=== PATIENT | male | born 1960 | race Caucasian/White ===

== ENCOUNTER 2016-11-28 20:50 | Inpatient (IN) | payer OTHER ==
[~2016-11-28] VITALS: Ht 188 cm; Wt 109.2 kg
--- NOTE | ~2016-11-28 | OP ---
PATIENT NAME: FLO MATA MEDICAL RECORD: [id number] :58 LOCATION:TOBY D.CV06 ADMISSION DATE:11/29/16 SURGEON: FLO AARON MD DATE OF OPERATION: 12/03/2016 DIAGNOSIS: Severe spinal stenosis secondary to cervical spondylosis at C3-C4. PROCEDURES: 1. C3-4 anterior cervical discectomy and decompression of spinal canal. 2. Anterior cervical interbody fusion C3-4 with 11 mm ____ PEEK cage 12 x 14 mm. 3. Instrumentation with 22 mm 4-hole titanium plate and 16 mm screws. 4. Radiologic localization in the operating room. SURGEON: Flo Aaron MD. TOOL TURRET LATHE SET UP OPERATOR: None. SUMMARY: The patient was taken to the operating room and after an adequate level of general anesthetic, was prepped and draped in the usual aseptic manner. An incision was made in the skin line with a 10 blade after infiltrating with 1:400,000 of epinephrine and 0.5% lidocaine. Dissection was carried out down to the longus colli muscles. Cloward self-retaining retractors were used to maintain exposure. The C3-4 interspace was identified and the annulus and anterior longitudinal ligament were excised with a 15 blade and removed piecemeal with a pituitary. Disc material was removed from the interspace. Following this, bony osteophytes were removed with the Midas Jay drill superiorly and inferiorly and several 3 mm straight and angled curettes as well as 1 and 2 mm Cloward punch. Following this, the neural foramina were enlarged bilaterally with 1 mm Cloward punch. A ____ trial was used to determine that an 11-mm cage 12 x 14 would best fit the interspace and the C-arm image was made of this trial to be sure that this was the appropriate size. Following this, an 11-mm cage was packed with Alphatec Neocore, which was an osteoconductive material, which was mixed with bone marrow aspirate from the vertebral body of C4 harvested with the Cloud Dynamicsshidi needle. The material was then packed in the ____ cage inserted in the interspace and countersunk a millimeter. Following this, a 22-mm 4-hole plate was placed over the anterior portion of the vertebral bodies of C3 and C4 and then 16-mm screws were used to secure the plate to the vertebral bodies. Cam locks were then used to lock the screws to the plate. A C-arm image was made of the construct to be sure of the proper position of everything. This being the case, the retractors were removed and hemostasis was assured with bipolar cautery and a round Frank drain was placed in the wound and brought out through a separate stab wound. The wound was closed with 3-0 Dexon on the platysma and subcuticular stitch with 4-0 Dexon was used on the skin. Although the patient has several areas of spinal stenosis, the most severe stenosis was at C3-4 and since he was myelopathic, it was elected to go ahead and do the C3-4 level at this time and see how he does and to see what further surgery may be required in the future down lower in the cervical spine. TRANSINT:[id number] Voice Confirmation ID: [id number] DOCUMENT ID: [id number] OPERATIVE REPORT [id number] FLO MATA JAMES MD CC: [id number] DICTATION DATE: 12/03/16 1326 SNAILER: [id number]/03/[id number] ADM IN [facility] [address] [place] [address]
[~2016-11-28 20:50] MED LIST: ASCORBIC ACID500 MG PO; CURAMIN; MULTIPLE VITAMI1 TA1 PO; NIASPAN500 MG PO; OMEGA-3100 MG PO; POTASSIUM99 M1 PO; SELENIUM PO; UNITHROID25 MCG PO; VITAMIN B-1100 M1 PO; VITAMIN D31000 UNIT PO
[2016-11-28 22:17] LABS: BASOPHILS 0.1 % (0-2); EOSINOPHILS 0.1 % (0-7); HEMATOCRIT 43.8 % (42.0-54.0); HEMOGLOBIN 14.7 g/dL (13.5-17.5); IMMATURE GRANULOCYTES 0.2 % (0-5); MCH 30.7 pg (26.0-34.0); MCHC 33.6 g/dL (31.0-37.0); MCV 91.4 fL (80.0-100.0); MEAN PLATELET VOLUME 10.1 fL (7.4-10.4); MONOCYTES 3.6 % (2-11); PLATELET COUNT 206 10x3/uL (130-400); RBC 4.79 10x6/uL (4.20-6.10); RDW 12.7 % (11.5-14.5); WBC 12.1 10x3/uL (4.8-10.8)
[2016-11-28 22:33] LABS: ALBUMIN 3.8 g/dL (3.4-5.0); ALKALINE PHOSPHATASE 115 U/L (46-116); ALT (SGPT) 43 U/L (10-68); BILIRUBIN - TOTAL 0.53 mg/dL (0.2-1.3); CALC OSMOLALITY 285 mosm/kg (275-300); CALCIUM 8.7 mg/dL (8.5-10.1); CARBON DIOXIDE 28.6 mmol/L (21.0-32.0); CHLORIDE - SERUM 104 mmol/L (98-107); CREATININE - SERUM 0.9 mg/dL (0.6-1.3); PROTEIN - SERUM 7.4 g/dL (6.4-8.2); SODIUM 141 mmol/L (136-145); UREA NITROGEN 14 mg/dL (7-18); eGFR NON AFRICAN AMERICAN > 90 mL/min (90-120)
[2016-11-28 22:47] LABS: GLUCOSE 174 mg/dL (74-106)
[2016-11-28 22:51] LABS: CREATINE KINASE 356 UL (21-232)
[2016-11-28 22:53] LABS: TROPONIN-I < 0.017 ng/mL (0.000-0.060)
[2016-11-28 22:54] LABS: CKMB 6.2 U/L (0.0-3.6)
[2016-11-28 23:18] LABS: APPEARANCE CLEAR (CLEAR); BILIRUBIN NEGATIVE (NEGATIVE); COLOR YELLOW (YELLOW); GLUCOSE 100 mg/dL (NEGATIVE); KETONE SMALL mg/dL (NEGATIVE); LEUKOCYTE ESTERASE NEGATIVE (NEGATIVE); NITRITE NEGATIVE (NEGATIVE); PROTEIN NEGATIVE (NEGATIVE); SPECIFIC GRAVITY 1.015 (1.005-1.020); UROBILINOGEN NORMAL (NORMAL)
[2016-11-29 01:32] LABS: APTT 22.8 SECONDS (22.8-39.4); INR 0.99 (0.85-1.17); PROTIME 12.9 SECONDS (11.6-15.0)
[2016-11-29 01:36] LABS: UDS - AMPHET NEGATIVE QUAL (NEGATIVE); UDS - BARB NEGATIVE QUAL (NEGATIVE); UDS - BENZO NEGATIVE QUAL (NEGATIVE); UDS - COCAINE NEGATIVE QUAL (NEGATIVE); UDS - METH NEGATIVE QUAL (NEGATIVE); UDS - OPIATE NEGATIVE QUAL (NEGATIVE); UDS - PCP NEGATIVE QUAL (NEGATIVE); UDS - THC NEGATIVE QUAL (NEGATIVE)
[2016-11-29 01:51] LABS: AMYLASE - SERUM 44 U/L (25-115); C-REACTIVE PROTEIN 0.5 mg/dL (0.0-0.9); LIPASE 154 U/L (73-393); PRO BNP 16 pg/mL (0-125); THYROID STIMULATING HORMONE 1.17 uIU/mL (0.36-3.74)
[2016-11-29 04:00] VITALS: BP 139/89
--- NOTE | 2016-11-29 04:20 | NUR ---
REC'D TO ROOM 2213 FROM ER DEPT PER STRETCHER A 56 Y/O W/M PER SERVICES DR. MANCUSO WITH DX ATAXIA/LOSS OF ADL'S.AND WEAKNESS NKDA. SALINE LOCK PATENT LEFT FOREARM SITE CLEAR.ASSESSMENT PER ADMIT PACKET.SR UP X2 CALL LIGHT WITHIN REACH.
[2016-11-29 04:29] VITALS: BP 139/89; BMI 32.8
--- NOTE | 2016-11-29 07:30 | NUR ---
PATIENT IS AWAKE, ALERT AND ORIENTED X'4. RESPIRATIONS ARE EVEN AND UNLABORED ON ROOM AIR. PATIENT IS LAYING FLAT. PATIENT DENIES NEEDS. BED IN LOWEST POSITION, CALL LIGHT IN REACH. BED RAILS UP X'S 2.
--- NOTE | 2016-11-29 07:40 | NUR ---
PT ASSESSMENT COMPLETE AWAKE AND ALERT ORINETED X 3 PT NOTED TO HAVE WEAKNESS TO LEFT SIDE PT STATES HISTORY OF BELLS PALSY IN PAST HOWEVER NO HISTORY OF WEAKNESS TO ARM AND LEG. BSA X 4 QUADS. LUNGS CLEAR BILATERAL
[2016-11-29 08:44] VITALS: BP 117/78
[2016-11-29 12:24] VITALS: BP 115/77
--- NOTE | 2016-11-29 15:00 | NUR ---
DEL REAL INSERTED VIA STERILE TECHNIQUE PER ORDER DR MANCUSO TOLERATED WELL IMMEDIATE RETURN OF 850 ML CLEAR YELLOW URINE
[2016-11-29 16:31] VITALS: BP 112/73
--- NOTE | 2016-11-29 19:00 | NUR ---
PATIENT SUPINE IN BED WATCHING TV. HOB 20 DEGREES. AAOX4. RR EVEN AND UNLABORED. 0 S/S OF DISTRESS. DENIES PAIN AT THIS TIME. IV TO LEFT FA PATENT WITH NO REDNESS OR SWELLING. DEL REAL SECURED WITH STATLOCK AND DRAINING TO GRAVITY. SRX2. BED LOW. CALL LIGHT WITHIN REACH.
[2016-11-29 20:00] VITALS: BP 113/72
[2016-11-30] VITALS: BP 105/59
[2016-11-30 03:00] LABS: BASOPHILS 0.2 % (0-2); HEMATOCRIT 42.8 % (42.0-54.0); HEMOGLOBIN 14.2 g/dL (13.5-17.5); IMMATURE GRANULOCYTES 0.2 % (0-5); MCH 30.6 pg (26.0-34.0); MCHC 33.2 g/dL (31.0-37.0); MCV 92.2 fL (80.0-100.0); MEAN PLATELET VOLUME 10.3 fL (7.4-10.4); MONOCYTES 10.8 % (2-11); NEUTROPHILS 63.8 % (40-80); PLATELET COUNT 205 10x3/uL (130-400); RBC 4.64 10x6/uL (4.20-6.10); RDW 13.3 % (11.5-14.5)
[2016-11-30 03:06] LABS: WBC 8.2 10x3/uL (4.8-10.8)
[2016-11-30 03:23] LABS: ALBUMIN 3.5 g/dL (3.4-5.0); ALKALINE PHOSPHATASE 105 U/L (46-116); ALT (SGPT) 38 U/L (10-68); BILIRUBIN - TOTAL 0.45 mg/dL (0.2-1.3); CALC OSMOLALITY 281 mosm/kg (275-300); CALCIUM 8.7 mg/dL (8.5-10.1); CARBON DIOXIDE 29.2 mmol/L (21.0-32.0); CHLORIDE - SERUM 106 mmol/L (98-107); CREATININE - SERUM 0.8 mg/dL (0.6-1.3); MAGNESIUM - SERUM 2.2 mg/dL (1.8-2.4); PHOSPHOROUS 3.3 mg/dL (2.5-4.9); POTASSIUM - SERUM 3.6 mmol/L (3.5-5.1); PROTEIN - SERUM 6.9 g/dL (6.4-8.2); SODIUM 141 mmol/L (136-145); UREA NITROGEN 15 mg/dL (7-18); eGFR NON AFRICAN AMERICAN > 90 mL/min (90-120)
[2016-11-30 03:25] LABS: GLUCOSE 101 mg/dL (74-106)
[2016-11-30 04:00] VITALS: BP 102/63
--- NOTE | 2016-11-30 04:00 | NUR ---
PATIENT SLEEPING WITH NO DISTRESS NOTED. CALL LIGHT WITHIN REACH.
--- NOTE | 2016-11-30 08:15 | NUR ---
PATIENT IS AWAKE AND ALERT, HE DID DISCUSS THAT HE HAS NOT BEEN ABLE TO WALK SINCE HE GOT HERE, HE GETS FRUSTRATED EASILY BECAUSE HE CAN NOT DO WHAT HE NORMALLY DOES. NO NEEDS.
[2016-11-30 09:04] VITALS: BP 115/69
--- NOTE | 2016-11-30 11:04 | NUR ---
PATIENT IS AWAKE AND ALERT, HE IS COMPLIANT WITH MEDS AND HE HAS NO NEEDS AT THIS TIME.
[2016-11-30 11:40] VITALS: BP 105/65
--- NOTE | 2016-11-30 14:00 | NUR ---
PATIENT WENT DOWN FOR A SPINAL TAP, BUT RADIOLOGY CALLED TO SEE IF HE HAD ASA IN THE PAST THREE DAYS. EXPLAINED TO HER THAT "YES, HE HAD AN ASA YESTERDAY, BUT IT HAS BEEN ON HOLD".
--- NOTE | 2016-11-30 14:15 | NUR ---
PATIENT IS BACK FROM RADIOLOGY, HE WAS NOT ABLE TO HAVE PROCEDURE D/T HAVING HAD ASAS YESTERDAY.
--- NOTE | 2016-11-30 15:08 | NUR ---
Patient had aspirin on 11-29-16. Radiologist to do LP on 12-03-16. Please hold all blood thinners.
--- NOTE | 2016-11-30 15:22 | NUR ---
Patient Name: FLO MATA Admission Status: ER Accout number: [id number] Admission Date: 11-29-2016 : 1960 Admission Diagnosis:ATAXIA, UNSPECIFIED Attending: FILIBERTO Current LOS: 1 Anticipated DC Date: 12-04-2016 Planned Disposition: Home Primary Insurance: [employer] Discharge Planning Comments: CM SPOKE WITH PATIENT REGARDING DISCHARGE NEEDS AND PLANS. PATIENT STATED HE LIVES ALONE AND HAS NO STEPS OR STAIRS AT HIS HOME. PATIENTS FRIEND (NATALIA) WILL DRIVE HIM HOME AT DISCHARGE. PATIENT STATED HE IS INDEPENDENT WITH HIS CARE AND HAS A WALKING STICK AT HOME. PATIENTS PCP IS DR. MANCUSO AND PHARMACY IS [facility] [address]. PATIENT WANTED TO WAIT AND SEE IF HOME HEALTH IS NEEDED. CM WILL CONTINUE TO FOLLOW PATIENT WITH D/C NEEDS AND PLANS. PCP DR. JAMEE [facility] [address]- [phone] NATALIA De La Torre (FRIEND) [phone] Wool Shearer: Jaimee Pierce Is the patient Alert and Oriented? Yes 0 * How many steps to enter\exit or inside your home? 0 0 * PCP DR. MANCUSO 0 * Pharmacy [facility] [address] 0 * Preadmission Environment Home Alone 0 * ADLs Independent 0 * Equipment None 0 * Other Equipment WALKING STICK 0 * List name and contact numbers for known caregivers / representatives who currently or will assist patient after discharge: NATALIA VARGAS (FRIEND) [phone] WILL BODY COVERER PATIENT 0 Grand Total: 0
[2016-11-30 15:52] VITALS: BP 111/73
--- NOTE | 2016-11-30 16:30 | NUR ---
PATIENT IS CALM AND PLEASANT, NO NEEDS AT THIS TIME.
[2016-11-30 17:38] LABS: APTT 24.6 SECONDS (22.8-39.4); INR 0.95 (0.85-1.17); PROTIME 12.6 SECONDS (11.6-15.0)
--- NOTE | 2016-11-30 18:45 | NUR ---
PATIENT IS CALM, HE DOES KEEP TURNING OFF HIS IV FLUIDS.
[2016-11-30 20:00] VITALS: BP 127/74
[2016-12-01] VITALS: BP 116/77
--- NOTE | 2016-12-01 00:47 | NUR ---
ASSESSED AT THE BEGINNING OF THE SHIFT. PT IS ALERT AND ORIENTED, ABLE TO VERBALIZE NEEDS. HE IS UNABLE TO GET UP FROM THE BED DUE TO WEAKNESS. HE HAS A DEL REAL CATH TO HELP WITH VOIDING AND WE ARE MAKING SURE THAT HE IS TURNING FOR COMFORT AND SKIN CARE. HIS IV SITE WAS LOOKING PUFFY SO IT WAS DC'D AND MOVED TO HIS LEFT HAND. HE IS JERKY AND IT WAS HARD TO PLACE AN IV DUE TO THIS. HE IS PLEASANT AND COOPERATIVE. THE BED IS LOW, RAILS UP X'S 2 WITH THE CALL LIGHT AT HAND.
[2016-12-01 04:00] VITALS: BP 107/62
[2016-12-01 06:11] LABS: BASOPHILS 0.3 % (0-2); EOSINOPHILS 1.6 % (0-7); HEMATOCRIT 44.1 % (42.0-54.0); HEMOGLOBIN 14.7 g/dL (13.5-17.5); IMMATURE GRANULOCYTES 0.1 % (0-5); LYMPHOCYTES 25.5 % (15-50); MCH 30.6 pg (26.0-34.0); MCHC 33.3 g/dL (31.0-37.0); MCV 91.7 fL (80.0-100.0); MEAN PLATELET VOLUME 11.2 fL (7.4-10.4); NEUTROPHILS 60.5 % (40-80); PLATELET COUNT 175 10x3/uL (130-400); RBC 4.81 10x6/uL (4.20-6.10); RDW 13.2 % (11.5-14.5); WBC 7.1 10x3/uL (4.8-10.8)
[2016-12-01 06:30] LABS: CALC OSMOLALITY 285 mosm/kg (275-300); CALCIUM 8.7 mg/dL (8.5-10.1); CARBON DIOXIDE 25.5 mmol/L (21.0-32.0); CHLORIDE - SERUM 108 mmol/L (98-107); CREATININE - SERUM 0.6 mg/dL (0.6-1.3); GLUCOSE 127 mg/dL (74-106); SODIUM 142 mmol/L (136-145); UREA NITROGEN 14 mg/dL (7-18); eGFR NON AFRICAN AMERICAN > 90 mL/min (90-120)
[2016-12-01 06:31] LABS: POTASSIUM - SERUM 4.6 mmol/L (3.5-5.1)
--- NOTE | 2016-12-01 07:20 | NUR ---
PATIENT RECEIVED IN LOW GOODMAN POSITION RESTING WITH EYES CLOSED. RESPIRATIONS EVEN AND UNLABORED. SIDE RAILS UP X2. BED IN LOW POSITION. CALL LIGHT IN REACH.
[2016-12-01 07:27] LABS: RAPID PLASMA REAGIN Non Reactive (Non Reactive)
[2016-12-01 07:32] VITALS: BP 118/72
--- NOTE | 2016-12-01 09:00 | NUR ---
PATIENT ALERT IN BED. NO SIGNS OF DISTRESS NOTED. TOLERATED BREAKFAST WITHOUT DIFFICULTY. SCHEDULED MEDICATION ADMINISTERED. SIDE RAILS UP X2. BED IN LOW POSITION. CALL LIGHT IN REACH.
--- NOTE | 2016-12-01 09:15 | NUR ---
SCDS ON BILATERALLY. USE EXPLAINED. STATES UNDERSTANDING. SIDE RAILS UP X2. BED IN LOW POSITION. CALL LIGHT IN REACH.
--- NOTE | 2016-12-01 11:10 | NUR ---
ALERT IN HIGH GOODMAN POSITION. NO SIGNS OF DISTRESS NOTED. SIDE RAILS UP X2. BED IN LOW POSITION. CALL LIGHT IN REACH.
[2016-12-01 11:20] VITALS: BP 134/72
--- NOTE | 2016-12-01 13:55 | NUR ---
PATIENT IN LOW GOODMAN POSITION RESTING WITH EYES CLOSED. RESPIRATIONS EVEN AND UNLABORED. SIDE RAILS UP X2. BED IN LOW POSITION. CALL LIGHT IN REACH.
[2016-12-01 15:26] VITALS: BP 133/70
--- NOTE | 2016-12-01 16:30 | NUR ---
PATIENT AWAKE AND ALERT IN BED WATCHING TV. RESPIRATIONS EVEN AND UNLABORED. SIDE RAILS UP X2. BED IN LOW POSITION. CALL LIGHT IN REACH. DENIES NEEDS.
--- NOTE | 2016-12-01 18:00 | NUR ---
ALERT IN BED WATCHING TV. NO SIGNS OF DISTRESS NOTED. DENIES NEEDS. SIDE RAILS UP X2. BED IN LOW POSITION. CALL LIGHT IN REACH.
[2016-12-01 20:00] VITALS: BP 130/85
[2016-12-02] VITALS: BP 128/87
[2016-12-02 04:00] VITALS: BP 122/84
--- NOTE | 2016-12-02 05:52 | NUR ---
ASSESSED AT THE BEGINNING OF THE SHIFT. PT IS ALERT AND ORIENTED, ABLE TO VERBALIZE NEEDS. HE IS ABLE TO TURN AND REPOSITION FOR COMFORT BUT CANNOT GET UP TO THE BATHROOM DUE TO POOR BALANCE. HE HAS A DEL REAL CATH TO VOID. MOST OF THE NIGHT HE HAS SLEPT EXCEPT WHEN HIS IV BEEPS AND WAKES HIM UP. HE IS HAVING A HARD TIME GETTING BACK TO SLEEP DUE TO THE FACT THAT HIS MIND WONT CUT OFF. HE IS WORRIED ABOUT HIS UP COMING SURGERY ON ACF 2-4. THE BED IS LOW, RAILS UP X'S 2 WITH THE CALL LIGHT AT HAND.
--- NOTE | 2016-12-02 08:30 | NUR ---
SCHEDULED MEDICATIONS ADMINISTERED AT THIS TIME WITHOUT DIFFICULTY. ASSESSMENT PERFORMED PER FLOWSHEET. DEL REAL PATENT AND DRAINING TO GRAVITY. PT DENIES PAIN AT THIS TIME. MER MAT ALARM ON AND IN USE FOR FALL PRECAUTIONS. PT REFUSES SCD'S AT THIS TIME. CALL LIGHT IN REACH, SRX2 WITH BED IN LOWEST POSITION AND WHEELS LOCKED. WILL CONTINUE WITH PLAN OF CARE.
[2016-12-02 09:06] VITALS: BP 154/87
[2016-12-02 09:39] LABS: BASOPHILS 0 % (0-2); EOSINOPHILS 0 % (0-7); HEMATOCRIT 44.9 % (42.0-54.0); HEMOGLOBIN 15.1 g/dL (13.5-17.5); IMMATURE GRANULOCYTES 0.3 % (0-5); MCH 30.7 pg (26.0-34.0); MCHC 33.6 g/dL (31.0-37.0); MCV 91.3 fL (80.0-100.0); MEAN PLATELET VOLUME 10.2 fL (7.4-10.4); MONOCYTES 3.8 % (2-11); NEUTROPHILS 87.9 % (40-80); PLATELET COUNT 235 10x3/uL (130-400); RBC 4.92 10x6/uL (4.20-6.10); WBC 12.2 10x3/uL (4.8-10.8)
[2016-12-02 09:45] LABS: CALC OSMOLALITY 286 mosm/kg (275-300); CARBON DIOXIDE 26.7 mmol/L (21.0-32.0); CHLORIDE - SERUM 105 mmol/L (98-107); GLUCOSE 194 mg/dL (74-106); POTASSIUM - SERUM 3.8 mmol/L (3.5-5.1); SODIUM 142 mmol/L (136-145); UREA NITROGEN 9 mg/dL (7-18); eGFR NON AFRICAN AMERICAN 82 mL/min (90-120)
--- NOTE | 2016-12-02 10:25 | NUR ---
URINE SAMPLE OBTAINED AT THIS TIME FOR URINE CULTURE PER ORDER. OBTAINED FROM SAMPLE PORT ON DEL REAL CATHETER. STAT LOCKED REPLACED AND DEL REAL CARE PROVIDED. FATHER AT BEDSIDE. DENIES NEEDS AT PRESENT TIME. CALL LIGHT IN REACH, WILL CONTINUE WITH PLAN OF CARE.
[2016-12-02 10:46] LABS: APPEARANCE HAZY (CLEAR); BILIRUBIN NEGATIVE (NEGATIVE); COLOR YELLOW (YELLOW); GLUCOSE 100 mg/dL (NEGATIVE); KETONE NEGATIVE (NEGATIVE); LEUKOCYTE ESTERASE TRACE (NEGATIVE); NITRITE NEGATIVE (NEGATIVE); PROTEIN NEGATIVE (NEGATIVE); SPECIFIC GRAVITY 1.015 (1.005-1.020); UROBILINOGEN NORMAL (NORMAL)
[2016-12-02 10:47] LABS: BACTERIA MODERATE /hpf (NONE SEEN); EPITHELIAL CELLS 0-5 /hpf (0-5); MUCUS <1+ /lpf (NONE SEEN)
--- NOTE | 2016-12-02 10:55 | NUR ---
SCHEDULED MEDICATIONS ADMINISTERED AT THIS TIME. IV TO LEFT WRIST PATENT WITH BRISK BLOOD RETURN PRESENT. FATHER REMAINS AT BEDSIDE. CALL LIGHT IN REACH, WILL CONTINUE WITH PLAN OF CARE.
[2016-12-02 11:48] VITALS: BP 122/88
--- NOTE | 2016-12-02 12:35 | NUR ---
NEW ORDER OBTAINED FOR URINE CULTURE AND ROCEPHIN PER DR SAN DUE TO RESULTS OF URINE ANALYSIS. EXPLAINED THESE NEW ORDERS TO PT AND HE VERBALIZED UNDERSTANDING. EATING LUNCH WITHOUT DIFFICULTY. FATHER REMAINS AT BEDSIDE. CALL LIGHT IN REACH, WILL CONTINUE WITH PLAN OF CARE.
[2016-12-02 16:14] VITALS: BP 136/84
[2016-12-02 20:00] VITALS: BP 139/77
--- NOTE | 2016-12-02 21:05 | NUR ---
AAO TIMES 4 SITTING UP IN BED @ 45 DEGREES. ASSESSMENT PER FLOWSHEET. REPORTS PAIN 0 AT THIS TIME. C/O CONTINUED WEAKNESS BUE, ESPECIALLY IN FINGERTIPS. REPORTS EPISODES OF ARMS MOVING INVOLUNTARILY BUT STATES THIS IS BETTER SINCE HE HAS BEEN IN THE HOSPITAL ON [facility]. PATIENT ASKS QUESTIONS REGARDING SCHEDULED ACF TOMORROW. QUESTIONS ANSWERED. DEL REAL CATHETER TO GRAVITY WITH YELLOW DRAINAGE NOTED. DENIES NEEDS, BED LOW, CL IN REACH, ALL FALL PRECAUTIONS CARRIED OUT. WILL CPOC.
[2016-12-03] VITALS (14 sets, daily range): BP systolic 124–147; BP diastolic 68–91; BMI 35.7
--- NOTE | 2016-12-03 00:51 | NUR ---
RESTING QUIETLY WITH EYES CLOSED RESP DEEP EVEN UNLABORED. BED LOW, CL IN REACH. ALL FALL PRECAUTIONS IN PLACE.
[2016-12-03 04:42] LABS: BASOPHILS 0.1 % (0-2); EOSINOPHILS 0 % (0-7); HEMATOCRIT 42.2 % (42.0-54.0); IMMATURE GRANULOCYTES 0.5 % (0-5); LYMPHOCYTES 10.3 % (15-50); MCH 30.4 pg (26.0-34.0); MCHC 33.2 g/dL (31.0-37.0); MCV 91.7 fL (80.0-100.0); MEAN PLATELET VOLUME 10.2 fL (7.4-10.4); MONOCYTES 6.3 % (2-11); NEUTROPHILS 82.8 % (40-80); PLATELET COUNT 226 10x3/uL (130-400); RDW 13.1 % (11.5-14.5); WBC 11.8 10x3/uL (4.8-10.8)
[2016-12-03 04:52] LABS: INR 0.96 (0.85-1.17); PROTIME 12.6 SECONDS (11.6-15.0)
[2016-12-03 05:02] LABS: CALCIUM 8.6 mg/dL (8.5-10.1); CARBON DIOXIDE 29.5 mmol/L (21.0-32.0); CHLORIDE - SERUM 107 mmol/L (98-107); CREATININE - SERUM 0.8 mg/dL (0.6-1.3); POTASSIUM - SERUM 4.1 mmol/L (3.5-5.1); SODIUM 144 mmol/L (136-145); eGFR NON AFRICAN AMERICAN > 90 mL/min (90-120)
[2016-12-03 05:04] LABS: CALC OSMOLALITY 289 mosm/kg (275-300); GLUCOSE 137 mg/dL (74-106); UREA NITROGEN 15 mg/dL (7-18)
--- NOTE | 2016-12-03 07:46 | NUR ---
PT HAS BEEN SCHEDULED FOR AN ACF THIS AM. PLEASE CANCEL ORDERS FOR LUMBAR PUNCTURE. VERIFIED W [place] BARRIOS.
--- NOTE | 2016-12-03 08:28 | NUR ---
SPOKE WITH MYLES TOBIAS, SHE STATED TO CHANGE THE OBTAIN CONSENT TO ACF OF 2-3, 3-4.
--- NOTE | 2016-12-03 09:39 | NUR ---
PRE-OP MEDICATIONS GIVEN TO PATIENT. PATIENT REMOVED GLASSES. PATIENT HAS DENTURES IN, BROUGHT PATIENT A DENTURE CUP. HE STATED HE WILL TAKE THEM OUT WHEN THEY COME TO GET HIM TO TAKE HIM TO PRE-OP. LEFT CUP ON THE BEDSIDE TABLE IN PATIENT'S REACH. PATIENT'S FATHER IS IN RECLINER.
--- NOTE | 2016-12-03 13:55 | NUR ---
PT CAROLINAGGLES BILAT TOES PER REQUEST
--- NOTE | 2016-12-03 14:45 | NUR ---
PT TO CVICU AT THIS TIME. PT IS STILL LETHARGIC FROM SEDATION. PT ANSWERS MOST QUESTIONS APPROPRIATLEY, AND FOLLOWS COMMANDS. PT ATTACHED TO MONITOR, O2 LOW. NC APPLIED AT 2L. PT HAS INSICION TO LEFT NECK. AREA IS CLEAN DRY AND DRSG INTACT. LORENA DRAIN TO LET NECK, COMPRESSED WITH BLOODY DRAINAGE. DEL REAL/SCDS IN PLACE. VSS. WILL MONITOR.
--- NOTE | 2016-12-03 17:00 | NUR ---
PT SITTING UP IN BED WATING ICE CHIPS AT THIS TIME. INCISION SITE APPEARS APPROPRIATE, DRSG INTACT. VSS
--- NOTE | 2016-12-03 19:30 | NUR ---
REPORT REC'D AND CARE ASSUMED, REC'D PT AWAKE, ALERT, ORIENTED X 3, ON ROOM AIR, LEFT HAND PIV D51/2NS @ 50CC/HR, LEFT FA PIV SALINE LOCKED BOTH IV SITES WITHOUT REDNESS OR EDEMA, RIGHT NECK DRSG WITH DERMABOND, CDI, RIGHT NECK LORENA COMPRESSED WITH SANGUINOUS DRAINAGE, PT MOVES ALL EXT'S PT REPORTS NOT BEING ABLE TO RECYCLE DRIVER CUPS AND THINGS WELL, SLIGHT WEAKNESS NOTED, DEL REAL PATENT DRAINING CLEAR YELLOW URINE, PPP, PT DENIES PAIN OR NEEDS, PT REQUESTING INSTRUCTIONS ON HOW TO USE BED CONTROLS, SHOWED AND DEMONSTRATED FOR PT, PT RETURNED DEMONSTRATION BY ADJUSTING HEAD OF BED FOR COMFORT, SR UP X 2, CALL LIGHT IN REACH.
--- NOTE | 2016-12-03 21:00 | NUR ---
NO VISITORS IN AT THIS TIME, PT SAYS " A LITTLE" WHEN ASKED IF HURTING, ISAACCO OFFERED, PT REFUSED STATES " I DON'T WANT ANY NARCOTICS", PT ACCEPTED TYLENOL 650 AT THIS TIME, BP ELEVATED WILL MONITOR FOR CHANGES.
--- NOTE | 2016-12-03 22:30 | NUR ---
PT TALKING ON PHONE, PILLOW ADJUSTED AND PT'S GLASSESS CLEANED PER REQUEST, REPORTS PAIN HAS IMPROVED, VSS.
--- NOTE | 2016-12-03 23:00 | NUR ---
REASSESSMENT COMPLETED, PT RESTING QUIETLY WATCHING TV, PT COMPLAINS OF NECK PAIN, STATES "I NEED A DIFFERENT PILLOW", PILLOW PROVIDED, PT DENIES FURTHER NEEDS.
[2016-12-04] VITALS (23 sets, daily range): BP systolic 135–166; BP diastolic 70–100; Ht 188 cm; Wt 109.2 kg
--- NOTE | 2016-12-04 00:30 | NUR ---
PT COMPLAINS OF NECK PAIN AND LEFT SHOULDER PAIN RATING "5" ON 0-10 PAIN SCALE, NORCO 5/325 PROVIDED FOR PAIN, WILL MONITOR FOR CHANGES.
--- NOTE | 2016-12-04 01:29 | NUR ---
PT REPORTS NORCO DID NOT HELP NECK OR SHOULDER PAIN, PT STATES " IT FEELS LIKE A MUSCLE SPASM", 750 MG ROBAXIN GIVEN PO FOR PAIN, PT DENIES FURTHER NEEDS.
--- NOTE | 2016-12-04 03:00 | NUR ---
PT REPORTS ANNMARIE HELPED, BP STABLE WILL CONT TO MONITOR FOR CHANGES.
--- NOTE | 2016-12-04 05:00 | NUR ---
NO CHANGES IN STATUS AT THIS TIME.
--- NOTE | 2016-12-04 06:15 | NUR ---
PT COUGHING UP PHLEGM COMPLAINS OF NAUSEA, 4MG ZOFRAN GIVEN SLOW IVP, BP ELEVATED, PT COMPLAINS OF RIGHT SHOULDER PAIN, WARM PACK APPLIED FOR COMFORT, NO VISITORS IN AT THIS TIME
--- NOTE | 2016-12-04 07:00 | NUR ---
REPORT RECEIVED. ASSESSMENT COMPLETED. PATIENT C/O PAIN 08/31. DR ESCOBEDO HERE AND REQUESTED HE BE GIVEN SOMETHING FOR HIS PAIN. WILL CHECK ORDERS.
--- NOTE | 2016-12-04 10:05 | NUR ---
PATIENT C/O EXCRUCIATING PAIN THAT WAS NOT HELPED FOR LONG WITH THE MORPHINE. WHEN ASKED HIS PAIN NUMBER, HE IS RATING IT A 4. DISCUSSED THE PAIN SCALE WITH HIM AND PATIENT IS NOT UNDERSTANDING. HE STILL RATES IT EXCRUICIATING AND NUMBERS IT A 4.
--- NOTE | 2016-12-04 10:34 | NUR ---
MYLES TOBIAS APN HERE TO SEE PATIENT. SHE STATED SHE WANTED TO KEEP THE PATIENT IN HERE ONE MORE DAY. SHE WANTS TO LEAVE THE DEL REAL IN UNTIL TOMORROW WELL THE DRAIN. SHE QUESTIONED THE PATIENT ABOUT HIS PAIN AND EXPLAINED TO HIM WHY SHE COULD NOT ORDER MOTRIN. SHE ASKED HIM ABOUT TYLENOL #3. AT THIS TIME HE DOES NOT WANT TO TRY IT, BUT MYLES STATED IF HE CHANGES HIS MIND, WE COULD D/C THE NORCO AND ORDER TYLENOL #3 1-2 Q4H PRN.
--- NOTE | 2016-12-04 11:12 | NUR ---
PATIENT VERY UPSET AT THIS TIME. HE IS CURSING AND BEING VERY UNCOOPERATIVE. HE DOES NOT WANT TO GET UP WITH PHYSICAL THERAPY, BUT THEN COMPLAINS THAT HE IS "BEING KEPT IN A BOX NOT ALLOWED TO DO ANYTHING". HE KEEPS SAYING HE WANTS MOTRIN EVEN THOUGH JIM BUENO AND MYSELF HAVE EXPLAINED TO HIM OVER AND OVER TO WHY HE CAN'T HAVE IT. HE HAS EXPRESSED HIS DISAPPROVAL TO THE FACT THAT WHEN HE YELLS HEY, SOMEONE ISN'T JUST RIGHT AT HIS BEDSIDE. HAVE APOLOGIZED FOR THIS, BUT PATIENT IS NOT RECEPTIVE OF THE APOLOGY. HE REFUSES TO USE HIS CALL LIGHT EVEN THOUGH HE HAS BEEN ENCOURAGED TO DO SUCH. NOTHING SAID BY THIS NURSE WAS MAKING HIM HAPPY, AND HE CONTINUED TO CURSE AT ME. AT THIS TIME I POLITELY EXCUSED MYSELF FROM HIS ROOM, EXPLAINED THAT I WOULD GLADLY RETURN TO ASSIST WITH HIS NEEDS, BUT ONLY IF HE REFRAINED FROM CURSING AT ME. PATIENT APOLOGIZED AT THIS TIME AND I EXITED THE ROOM.
--- NOTE | 2016-12-04 14:01 | NUR ---
PER TAMMY PHYSICAL THERAPIST, IT IS RECOMMENDED THAT THE PATIENT GO THROUGH REHAB PRESCREEN AND GO TO OUR REHAB DOWNSTAIRS. ORDER OBTAINED AND ENTERED.
--- NOTE | 2016-12-04 15:39 | NUR ---
Rehab Note- Acute Rehab Prescreen order received. The patient has [employer]. Have spoken to Izzy at [employer] & have faxed clinicals to [phone] for review for possible authorization for an IRF stay. Spoke with ALPHONSO Hermosillo. Thank you for this referral! Gaby Price RN Clinical Liaison, [facility] Rehab/Amy
--- NOTE | 2016-12-04 16:22 | NUR ---
PATIENT ASSISTED UP TO CHAIR AT BEDSIDE. BED LINENS CHANGED AT THIS TIME. PATIENT STILL REFUSES TO TAKE A BATH AT THIS TIME. WILL CONTINUE TO ENCOURAGE THIS.
--- NOTE | 2016-12-04 19:20 | NUR ---
REC'D PT RESTING IN BED, AWAKE, ALERT, ORIENTED X 3, RIGHT NECK INCISION WITH DERMABOND, CDI, LORENA DRAIN TO RIGHT OF INCISION COMPRESSED WITH SANGUINOUS DRAINAGE, LEFT HAND PIV WITH D51/2NS @ 10CC/HR, DEL REAL PATENT DRAINING CLEAR YELLOW URINE, BILAT SCD'S INTACT, PPP, SR UP X 2, CALL LIGHT IN REACH, BED IN LOW POSITION.
--- NOTE | 2016-12-04 19:20 | NUR ---
REC'D PT RESTING ON ROOM AIR WATCHING TV, AWAKE ,ALERT, ORIENTED X 3, LEFT HAND PIV D51/2 NS @ 10CC/HR, LEFT FOREARM PIV SALINE LOCKED, RIGHT NECK INCISION CDI, RIGHT LORENA DRAIN COMPRESSED WITH SM AMOUNT SANGUINOUS DRAINAGE, PT DENIES PAIN, SR UP X 2, CALL LIGHT IN REACH, BED IN LOW POSITION, BILAT SCD'S INTACT, PPP.
--- NOTE | 2016-12-04 20:30 | NUR ---
PT COMPLAINS OF BEING UNCOMFORTABLE, ASSISTED PT TO REPOSITION FOR COMFORT, PT COMPLAINS OF LEFT SHOULDER PAIN, WARM PACK PROVIDED AND ICE WATER GIVEN ON REQUEST, BP ELEVATED WILL CONTINUE TO MONITOR.
--- NOTE | 2016-12-04 21:00 | NUR ---
PT ON CELL PHONE SPEAKING TO FAMILY MEMBER, NO VISITORS IN AT THIS TIME.
--- NOTE | 2016-12-04 22:00 | NUR ---
PT STATES " I THREW UP" CLEAR SECRETIONS NOTED IN EMESIS BAG, 4MG ZOFRAN GIVEN SLOW IVP, NECK LINE OF GOWN NOTED TO HAVE BLOOD ON IT, INCISION WITH DRIED BLOOD, SUTURE LOOSE ON LORENA DRAIN, PT DENIES PULLING AT DRAIN, SM PIECE OF TAPE USED TO SECURE DRAIN, GOWN WET, CHANGED AT THIS TIME, PT COMPLAINS OF SHOULDER PAIN, REPOSITIONED UP IN BED.
--- NOTE | 2016-12-04 22:30 | NUR ---
ROUTINE MEDS GIVEN, PO MEDS HELD DUE TO NAUSEA, PT DENIES NEEDS.
--- NOTE | 2016-12-04 23:00 | NUR ---
PT RESTING EYES CLOSED, RESP EVEN AND UNLABORED, REASSESSMENT COMPLETED, SR UP X 2, VISIBLE TO NURSES STATION.
[2016-12-05] VITALS (24 sets, daily range): BP systolic 115–155; BP diastolic 69–99
--- NOTE | 2016-12-05 | NUR ---
PT RESTLESS IN BED, COMPLAINS OF SHOULDER PAIN, REFUSES PAIN MEDICATION AT THIS TME, STATES " IT WILL JUST MAKE ME NAUSEATED", BP ELEVATED, ATTEMPTED TO GET PT TO REPOSITION OFF OF BACK, PT STATES NO I DON'T WANT TO, INSRUCTED PT TO CALL IF HE CHANGED HIS MIND AND WISHED TO BE REPOSITIONED.
--- NOTE | 2016-12-05 00:45 | NUR ---
PT WANTING TO SIT UP ON SIDE OF BED TO CLEAR SECRETIONS, ASSISTED PT TO SIDE OF BED, WEAKNESS NOTED, PT WITH PRODUCTIVE COUGH OF WHITE SPUTUM, PT ASSISTED BACK TO BED, CALL LIGHT IN REACH.
--- NOTE | 2016-12-05 01:30 | NUR ---
PT COMPLAINS OF SHOULDER PAIN, 2MG MORPHINE GIVEN SLOW IVP, BP STABLE WILL MONITOR FOR CHANGES.
--- NOTE | 2016-12-05 03:01 | NUR ---
PT AWAKE WANTING TO GET OOB AND LOOK THROUGH BAGS IN ROOM, BAGS HANDED TO PT, WHEN ASKED HOW HIS PAIN IS STATES " I FEEL GREAT RIGHT NOW", VSS, PT DENIES FURTHER NEEDS.
--- NOTE | 2016-12-05 04:30 | NUR ---
LAB AT FOR AM LAB DRAW.
[2016-12-05 04:40] LABS: BASOPHILS 0.1 % (0-2); EOSINOPHILS 0 % (0-7); HEMATOCRIT 49.2 % (42.0-54.0); HEMOGLOBIN 16.7 g/dL (13.5-17.5); IMMATURE GRANULOCYTES 0.6 % (0-5); LYMPHOCYTES 7.2 % (15-50); MCH 31.1 pg (26.0-34.0); MCHC 33.9 g/dL (31.0-37.0); MCV 91.6 fL (80.0-100.0); MEAN PLATELET VOLUME 10.3 fL (7.4-10.4); MONOCYTES 10.7 % (2-11); NEUTROPHILS 81.4 % (40-80); PLATELET COUNT 246 10x3/uL (130-400); RBC 5.37 10x6/uL (4.20-6.10); RDW 13.2 % (11.5-14.5); WBC 14.5 10x3/uL (4.8-10.8)
[2016-12-05 04:49] LABS: CALC OSMOLALITY 279 mosm/kg (275-300); CALCIUM 8.6 mg/dL (8.5-10.1); CARBON DIOXIDE 31.2 mmol/L (21.0-32.0); CHLORIDE - SERUM 103 mmol/L (98-107); CREATININE - SERUM 0.8 mg/dL (0.6-1.3); GLUCOSE 143 mg/dL (74-106); POTASSIUM - SERUM 4.1 mmol/L (3.5-5.1); SODIUM 138 mmol/L (136-145); UREA NITROGEN 18 mg/dL (7-18); eGFR NON AFRICAN AMERICAN > 90 mL/min (90-120)
--- NOTE | 2016-12-05 06:00 | NUR ---
PT RESTING IN BED INQUIRING ABOUT WHAT TIME HE WOULD TRANSFER, EXPLAINED TO PT I WAS UNSURE OF THE TIME, PT DENIES PAIN AT THIS TIME, WILL CONT TO MONITOR FOR CHANGES.
--- NOTE | 2016-12-05 07:30 | NUR ---
SHIFT ASSESSMENT VIA FLOWSHEET, SEE FOR DETAILS. VSS.
--- NOTE | 2016-12-05 09:15 | NUR ---
RIGHT NECK LORENA DRAIN D/C'D WITH CATH TIP INTACT PER ORDER. BLADDER TRAINING INITIATED AND DISCUSSED WITH PT. PT VERBALIZES UNDERSTANDING.
--- NOTE | 2016-12-05 09:59 | NUR ---
PT REPEATEDLY ASKING FOR "ROLL OF LETTERS OFF THE HUTCH." PT REORIENTED TO THE FACT THAT HE IS IN THE HOSPITAL. ANGRILY REPLIES, "I KNOW THAT! I KNOW MY LETTERS ARE OUT THERE, BUT NOONE WILL GET THEM FOR ME!"
--- NOTE | 2016-12-05 10:35 | NUR ---
PT AMBULATED APPROX 120FT WITH PHYSICAL THEARPY ASSIST. RETURNED TO CHAIR AT BEDSIDE.
--- NOTE | 2016-12-05 11:00 | NUR ---
REASSESSMENT VIA FLOWSHEET, SEE FOR DETAILS.
--- NOTE | 2016-12-05 11:30 | NUR ---
PT ASSISTED BACK TO BED, PHYSICAL THERAPY AT BEDSIDE. PT STATES, "I HAVE SLEPT 5 HOURS IN THE LAST FOUR DAYS, I NEED TO GET IN BED TO SLEEP."
--- NOTE | 2016-12-05 12:04 | NUR ---
Rehab Note- received approval from Kelly Navarrete with [employer] that the patient has been approved for an IRF stay from 12/06/16-12/13/16 with clinicals due on 12/14/16. Authorization #[id number]. Will plan on admitting to [facility] IRF on 12/06/16. Spoke with ALPHONSO Hermosillo to inform of patient approval. Continue to follow. Thank you for this referral! Gaby Price RN Clinical Liaison, [facility] Rehab/Amy
--- NOTE | 2016-12-05 15:05 | NUR ---
REASSESSMENT VIA FLOWSHEET, SEE FOR DETAILS. VSS. FAMILY AT BEDSIDE, UPDATE PROVIDED.
--- NOTE | 2016-12-05 16:30 | NUR ---
ZOFRAN IVP GIVEN PER ORDER FOR PT N/V.
--- NOTE | 2016-12-05 19:15 | NUR ---
Received patient resting in bed with eyes open watching TV, Assessment completed per flowsheet. Patient AO x4, calm and cooperative. Eyes PERRLA @ 3mm with brisk response, sclera is white. S1/S2 noted NSR on telemetry with HR 90, rhythmic and regular. Breathing is even and unlabored on room air, lung sounds clear bilateral upper with slightly diminished lower. Abdomen is soft and round, non-tender to palpation with bowel sounds active x4. Rdz secured in place,clear yellow urine noted in collection bag. Full ROM all extremities with weakness noted all extremities, cap refill <3 sec. R neck incision noted, open to air with no bleeding/swelling noted. 20g PIV L hand, dressing intact with fluids infusing. Patient c/o nausea, provided fan at patient request and will provide PRN medication when available. Patient denies pain or other needs at this time, all VSS and will continue to monitor.
--- NOTE | 2016-12-05 23:15 | NUR ---
Reassessment completed per flowsheet, patient resting in bed with eyes closed. S1/S2 noted NSR on telemetry with HR 91, rhythmic and regular. Breathing is even and unlabored on room air, O2 sat 96%. Patient c/o Nausea/vomiting, 140ml yellow/brown emesis noted. PRN nausea medication given, will reassess. No further needs at this time, will continue to monitor.
--- NOTE | 2016-12-05 23:35 | NUR ---
Patient c/o nausea, 25ml yellow/brown emesis noted. Patient cleaned and linen change performed, no further needs at this time. All VSS and will continue to monitor.
[2016-12-06] VITALS (12 sets, daily range): BP systolic 116–147; BP diastolic 84–100
--- NOTE | 2016-12-06 01:00 | NUR ---
Patient resting in bed with eyes closed, breathing is even and unlabored. Patient c/o nausea, no emesis at this time. Assisted in repositioning and provided cool wash rag to head, patient states some relief. No further needs and will continue to monitor.
--- NOTE | 2016-12-06 03:06 | NUR ---
Reassessment completed per flowsheet, patient resting in bed with eyes closed. S1/S2 noted NSR on telemetry with HR 92, rhythmic and regular. Breathing is even and unlabored on room air, O2 sat 94%. R neck incision open to air, no bleeding or swelling noted. Patient denies nausea or pain at this time, all VSS and will continue to monitor.
--- NOTE | 2016-12-06 07:00 | NUR ---
REC'D CARE OF PT. A&O X3.
[2016-12-06] MEDS ORDERED: ROBAXIN-750750 MG PO (07:07)
[2016-12-06] MEDS ORDERED: MACROBID100 MG PO (07:07)
[2016-12-06] MEDS ORDERED: LOVENOX40 MG/0.4 SC (07:07)
[2016-12-06] MEDS ORDERED: ACETAMINOPHEN325 MG PO (07:07)
[2016-12-06] MEDS ORDERED: ONDANSETRON4 MG/2 M3 IV (07:08)
[2016-12-06] MEDS ORDERED: IBUPROFEN600 MG PO (07:08)
[2016-12-06] MEDS ORDERED: COLACE100 MG PO (07:08)
[2016-12-06] MEDS ORDERED: FLORAJEN3 CAPS460 MG PO (07:08)
[2016-12-06] MEDS ORDERED: HYDROCODON-ACE1 EAC7 PO (07:08)
--- NOTE | 2016-12-06 13:55 | NUR ---
MOVED TO 1112B VIA WC WITHOUT DIFFICULTY.
== END 2016-12-06 14:27 | DRG 472 ==
LOC: D.ER 20:50 → D.MS 11-29 02:59 → D.CVICU 11-29 02:59
PROVIDERS: Family Medicine; Neurological Surgery; Nurse Practitioner Family; Psychiatry & Neurology Neurology; Radiology Diagnostic Radiology; ADMIT Family Medicine
PROC: 0RG10A0 Fusion of Cervical Vertebral Joint with Interbody Fusion Device, Anterior Approach, Anterior Column, Open Approach (ICD-10-PCS; 2016-12-03)
PROC: 01N10ZZ Release Cervical Nerve, Open Approach (ICD-10-PCS; 2016-12-03)
PROC: 0RT30ZZ Resection of Cervical Vertebral Disc, Open Approach (ICD-10-PCS; principal; 2016-12-03 09:30)
DX: M48.02 Spinal stenosis, cervical region (principal); G95.89 Other specified diseases of spinal cord; N39.0 Urinary tract infection, site not specified; R27.0 Ataxia, unspecified; E03.9 Hypothyroidism, unspecified; I10 Essential (primary) hypertension; R29.2 Abnormal reflex; M47.812 Spondylosis without myelopathy or radiculopathy, cervical region; Z87.891 Personal history of nicotine dependence

== ENCOUNTER 2016-12-06 13:56 | Inpatient (IN) | payer OTHER ==
[~2016-12-06] VITALS: Ht 188 cm; Wt 126.1 kg
--- NOTE | 2016-12-06 13:45 | NUR ---
PT ARRIVED TO UNIT VIA WHEELCHAIR ACCOMPANIED BY HOSPITAL STAFF. PT WAS A MOD ASSIST FROM WC TO BED. PT HAS A DEL REAL CATHETER DRAINING CLEAR YELLOW URINE. PT IS A&OX4. PT HAS A RT NECK INCISION THAT IS OPEN TO AIR AND SCABBED OVER. PT STATES PAIN LEVEL 8/10 AND REQ AND REC'D PRN MOTRIN. WCTM. BED LOW. CL IN REACH.
[~2016-12-06 13:56] MED LIST changes: +ACETAMINOPHEN325 MG PO; +COLACE100 MG PO; +FLORAJEN3 CAPS460 MG PO; +HYDROCODON-ACE1 EAC7 PO; +IBUPROFEN600 MG PO; +LOVENOX40 MG/0.4 SC; +MACROBID100 MG PO; +ONDANSETRON4 MG/2 M3 IV; +ROBAXIN-750750 MG PO
[2016-12-06 14:20] VITALS: BP 165/110; BMI 35.7
--- NOTE | 2016-12-06 16:15 | NUR ---
PT STATES PAIN LEVEL AT 4 AT THIS TIME. PT DENIES NEEDS. WCTM. BED LOW. CL IN REACH.
--- NOTE | 2016-12-06 18:15 | NUR ---
PT EATING DINNER, DENIES NEEDS. CL IN REACH.
--- NOTE | 2016-12-06 20:00 | NUR ---
PT IN BED WITH HOB UP FOR COMFORT. WATCHING TV. ALERT & ORIENTED. DEL REAL CATH. NO 02. LEFT WRIST IV FLUSHES EASILY, SALINE LOC. RIGHT NECK SCAB. PT STATES HE HAS NOT HAD A BM IN 4 DAYS. GAVE PT SOME PRUNE JUICE. BED IN LOWEST POSITION AND CALL LIGHT WITHIN REACH.
[2016-12-06 22:11] VITALS: BP 130/58
--- NOTE | 2016-12-07 | NUR ---
PT IN BED WITH HOB UP FOR COMFORT. EYES CLOSED. CHEST RISING AND FALLING. BED IN LOWEST POSITION AND CALL LIGHT WITHIN REACH.
--- NOTE | 2016-12-07 04:05 | NUR ---
PATIENT C/O DYSPEPSIA. REPORTS WAS RECEIVING "SOMETHING FOR ACID REFLUX" IN HIS PREVIOUS UNIT. WILL INFORM DR. MARCIAL THIS MORNING DISHCARGE MED REC FROM PRIOR UNIT LISTS PREOP IV PEPCID AND REGLAN, BUT NOT SCHEDULED ORDER.
[2016-12-07 07:23] LABS: BASOPHILS 0.1 % (0-2); EOSINOPHILS 0.3 % (0-7); HEMATOCRIT 52.7 % (42.0-54.0); IMMATURE GRANULOCYTES 0.5 % (0-5); LYMPHOCYTES 11.5 % (15-50); MCH 30.8 pg (26.0-34.0); MCHC 34.2 g/dL (31.0-37.0); MCV 90.2 fL (80.0-100.0); MEAN PLATELET VOLUME 10.5 fL (7.4-10.4); MONOCYTES 12.1 % (2-11); NEUTROPHILS 75.5 % (40-80); RBC 5.84 10x6/uL (4.20-6.10); RDW 12.9 % (11.5-14.5); WBC 13.7 10x3/uL (4.8-10.8)
[2016-12-07 07:29] LABS: PLATELET COUNT 195 10x3/uL (130-400)
[2016-12-07 07:52] LABS: CALC OSMOLALITY 275 mosm/kg (275-300); CALCIUM 8.5 mg/dL (8.5-10.1); CARBON DIOXIDE 27.4 mmol/L (21.0-32.0); CHLORIDE - SERUM 101 mmol/L (98-107); CREATININE - SERUM 0.7 mg/dL (0.6-1.3); GLUCOSE 151 mg/dL (74-106); POTASSIUM - SERUM 4.3 mmol/L (3.5-5.1); SODIUM 135 mmol/L (136-145); UREA NITROGEN 21 mg/dL (7-18); eGFR NON AFRICAN AMERICAN > 90 mL/min (90-120)
[2016-12-07 08:57] VITALS: BP 113/80
--- NOTE | 2016-12-07 09:00 | NUR ---
PT AM MEDS ADMINISTERED. PT EATING BREAKFAST, DENIES NEEDS.
--- NOTE | 2016-12-07 09:44 | NUR ---
PT DEL REAL UNCLAMPED. PT GETTING SHOWER WITH OT.
--- NOTE | 2016-12-07 11:59 | NUR ---
PT RESTING IN BED, DENIES NEEDS.
[2016-12-07 13:52] VITALS: Ht 188 cm; Wt 126.1 kg
--- NOTE | 2016-12-07 16:21 | NUR ---
PATIENT ADDMITTED TO REHAB FROM ACUTE FLOOR. PCP IS . HE USES [facility] FOR HIS PHARMAN[facility]. HAS A CANE AT HOME. HIS DISCHARGE PLANS ARE FOR HIM TO RETURN HOME. HE IS OF PENTECOSTALISM HAM[place]. WILL CONTINUE TO FOLLOW WITH PATIENT.
--- NOTE | 2016-12-07 18:05 | NUR ---
PT RESTING IN BED WITH EYES OPEN CALL LIGHT IN REACH NO PROBLEMS WILL MONITER
[2016-12-07 19:00] VITALS: BP 132/91
--- NOTE | 2016-12-07 20:00 | NUR ---
PT IN BED WITH HOB UP FOR COMFORT. WATCHING TV. ALERT & ORIENTED. DEL REAL CATH. BLADDER TRAINING. ORDERS TO D/C DEL REAL 12/08/16 @ 0600. NO 02. LEFT WRIST IV SALINE LOC. RIGHT NECK SCAB. PT STATES HE ONLY WANTS TO TAKE MOTRIN FOR PAIN. BED IN LOWEST POSITION AND CALL LIGHT WITHIN REACH.
--- NOTE | 2016-12-07 23:35 | NUR ---
RESTING QUIETLY, EYES CLOSED.
--- NOTE | 2016-12-08 03:30 | NUR ---
PT USED CALL LIGHT. WENT IN PT'S ROOM AND HIS BED WAS WET AND THE FLOOR. PT STATED HE HAS BEEN VOMITING. CLEANED PT UP AND CHANGED PT'S BED. AND GAVE PT A ZOFRAN. WILL CONTINUE TO MONITOR.
[2016-12-08 08:00] VITALS: BP 139/90
--- NOTE | 2016-12-08 08:00 | NUR ---
RESTING QUIETLY IN BED.ASSESSMENT COMPLETED.NO SIGNS OF ACUTE DISTRESS.RATES PAIN IN SHOULDERS A 3.WILL CONTINUE WITH PLAN OF CARE.
--- NOTE | 2016-12-08 19:15 | NUR ---
ASSISTED PATIENT UP TO COMMODE WHERE HE STOOD SOMEWHAT UNSTABLY AND URINATED. INSISTED ON STANDING AT COMMODE. SAYS HE CANNOT USE A URINAL WHILE IN BED.
--- NOTE | 2016-12-08 20:00 | NUR ---
PT LYING IN BED, WATCHING TV. PT REQUESTS MILK OF MAG. BED IN LOWEST POSTITION AND CALL LIGHT WITHIN REACH.
[2016-12-08 21:45] VITALS: BP 142/88
--- NOTE | 2016-12-08 21:45 | NUR ---
ASSESSMENT AND HS MEDS COMPLETE. GAVE PATIENT IBUPROFEN 600MG PO FOR PAIN LEVEL OF 4/10 IN NECK AND SHOULDERS. MICROPORE-LIKE CLEAR DRESSING OVER RIGHT ACF INCISION. PATIENT WANTS TO KNOW WHEN IT CAN BE D/C'D. IT IS VERY STRONGLY ADHERED TO SKIN SO AM UNSURE IF THIS IS JUST WELL ADHERED TAPE OR SOME SPECIAL CLOSURE MATERIAL. IN ANY CASE IT REMAINS IN PLACE FOR TONIGHT.
--- NOTE | 2016-12-09 00:10 | NUR ---
RESTING IN BED, SUPINE. HOB UP 10 DEGREES. APPEARS COMFORTABLE.
--- NOTE | 2016-12-09 02:30 | NUR ---
RESTING QUIETLY, EYES CLOSED. NO DISTRESS NOTED.
--- NOTE | 2016-12-09 04:30 | NUR ---
RESTING IN BED, EYES CLOSED. RESPIRING QUIETLY.
--- NOTE | 2016-12-09 05:45 | NUR ---
REMAINS IN BED, EYES CLOSED. NO DISTRESS NOTED.
[2016-12-09 08:00] VITALS: BP 127/88
[2016-12-09 20:00] VITALS: BP 131/64
--- NOTE | 2016-12-09 20:00 | NUR ---
PT LYING IN BED, WATCHING TV. PT REQUESTS MILK OF MAG. BED IN LOWEST POSTITION AND CALL LIGHT WITHIN REACH.
--- NOTE | 2016-12-10 | NUR ---
PT IN BED. EYES CLOSED. CHEST RISNING AND FALLING. EMPTIED URINAL. BED IN LOWEST POSITION AND SARAHI LLIGHT WITHIN REACH.
[2016-12-10 06:38] LABS: BASOPHILS 0.2 % (0-2); EOSINOPHILS 1.2 % (0-7); HEMATOCRIT 47.4 % (42.0-54.0); HEMOGLOBIN 15.8 g/dL (13.5-17.5); IMMATURE GRANULOCYTES 0.6 % (0-5); LYMPHOCYTES 15.5 % (15-50); MCH 30.7 pg (26.0-34.0); MCHC 33.3 g/dL (31.0-37.0); MEAN PLATELET VOLUME 10.5 fL (7.4-10.4); MONOCYTES 9.8 % (2-11); NEUTROPHILS 72.7 % (40-80); PLATELET COUNT 234 10x3/uL (130-400); RBC 5.15 10x6/uL (4.20-6.10); RDW 12.9 % (11.5-14.5); WBC 12.2 10x3/uL (4.8-10.8)
[2016-12-10 06:58] LABS: CALC OSMOLALITY 283 mosm/kg (275-300); CALCIUM 8.7 mg/dL (8.5-10.1); CARBON DIOXIDE 31.9 mmol/L (21.0-32.0); CHLORIDE - SERUM 104 mmol/L (98-107); CREATININE - SERUM 0.7 mg/dL (0.6-1.3); GLUCOSE 127 mg/dL (74-106); POTASSIUM - SERUM 4.1 mmol/L (3.5-5.1); SODIUM 141 mmol/L (136-145); UREA NITROGEN 16 mg/dL (7-18); eGFR NON AFRICAN AMERICAN > 90 mL/min (90-120)
--- NOTE | 2016-12-10 07:32 | NUR ---
RESTING QUIETLY IN BED CALL LIGHT IN REACH
[2016-12-10 09:09] VITALS: BP 119/88
--- NOTE | 2016-12-10 10:23 | NUR ---
MORNING MEDICATION GIVEN, PT TOLERATED WELL, PT IN THERAPY, WILL CONTINUE TO MONITOR.
--- NOTE | 2016-12-10 13:17 | NUR ---
PT IN THERAPY.
--- NOTE | 2016-12-10 15:29 | NUR ---
PT RESTING IN BED WATCHING TV, REMOVED BANDAGE ON RIGHT SIDE OF NECK, PT TOLERATED WELL, WILL CONTINUE TO MONITOR, CALL LIGHT WITHIN REACH.
--- NOTE | 2016-12-10 17:27 | NUR ---
ASSISTED PT TO BATHROOM AND BACK TO BED VIA WHEELCHAIR, PT TOLERATED WELL, WILL CONTINUE TO MONITOR, CALL LIGHT WITHIN REACH.
--- NOTE | 2016-12-10 19:50 | NUR ---
PT SIT UP IN BED AND WATCH TV.
[2016-12-10 20:11] VITALS: BP 150/98
--- NOTE | 2016-12-11 00:20 | NUR ---
ASSESS PT VITAL SIGNS: T-98.7 BP-130/83 P-76 R-16 [id number]%.
--- NOTE | 2016-12-11 04:32 | NUR ---
PT REST QUIETLY IN BED, BED LOW, CALL LIGHT WITHIN REACH.
--- NOTE | 2016-12-11 06:32 | NUR ---
PT RESTING QUIETLY, NO S/S OF ACUTE DISTRESS.
[2016-12-11 08:00] VITALS: BP 130/91
--- NOTE | 2016-12-11 08:15 | NUR ---
PT RESTING IN BED WITH EYES OPEN CALL LIGHT IN REACH NO PROBLEMS WILL MONITER
--- NOTE | 2016-12-11 12:50 | NUR ---
Nutrition Follow Up: Pt was asleep at the time of RD visit. Interview deferred. Pt is eating 100% meal avg on a regular diet. +BM 12/11/16. Wt stable. Labs reviewed - Glucose elevated. Meds noted. Pt with excellent po intake at this time. Rec continue current diet. RD following.
--- NOTE | 2016-12-11 14:23 | NUR ---
PT RESTING IN BED WITH EYES OPEN CALL LIGHT IN REACH NO PROBLEMS WILL MONITER
--- NOTE | 2016-12-11 18:45 | NUR ---
RESTING QUIETLY IN BED CALL LIGHT IN REACH
--- NOTE | 2016-12-11 19:30 | NUR ---
pt watching tv, respirations regular and unlabored, conversive, denies needs.
[2016-12-11 21:39] VITALS: BP 143/87
--- NOTE | 2016-12-12 01:00 | NUR ---
pt awake, sba with transfer from bed to w/c. pt able to transfer supervision from w/c to standing position at toilet. pt states he has to stand to urinate, stating he feels much better that way. no s/s of acute distress, pt has limited rom in neck.
[2016-12-12 06:11] LABS: BASOPHILS 0.2 % (0-2); EOSINOPHILS 2.1 % (0-7); HEMOGLOBIN 14.2 g/dL (13.5-17.5); IMMATURE GRANULOCYTES 1.4 % (0-5); LYMPHOCYTES 24.4 % (15-50); MCH 30.5 pg (26.0-34.0); MCV 92.3 fL (80.0-100.0); MEAN PLATELET VOLUME 10.2 fL (7.4-10.4); MONOCYTES 9.9 % (2-11); PLATELET COUNT 216 10x3/uL (130-400); RBC 4.66 10x6/uL (4.20-6.10)
[2016-12-12 06:23] LABS: WBC 8.9 10x3/uL (4.8-10.8)
[2016-12-12 06:33] LABS: CALC OSMOLALITY 284 mosm/kg (275-300); CALCIUM 8.2 mg/dL (8.5-10.1); CARBON DIOXIDE 28.9 mmol/L (21.0-32.0); CHLORIDE - SERUM 105 mmol/L (98-107); CREATININE - SERUM 0.6 mg/dL (0.6-1.3); GLUCOSE 101 mg/dL (74-106); POTASSIUM - SERUM 3.7 mmol/L (3.5-5.1); SODIUM 142 mmol/L (136-145); UREA NITROGEN 18 mg/dL (7-18); eGFR NON AFRICAN AMERICAN > 90 mL/min (90-120)
--- NOTE | 2016-12-12 06:33 | NUR ---
pt lying supine position in bed, pt is conversive, motivated to be able to be independent with adl's.
--- NOTE | 2016-12-12 08:00 | NUR ---
PATIENT IS ALERT/ORIENT X4. CALL LIGHT WITHIN REACH. VOICES NO NEEDS
[2016-12-12 08:11] VITALS: BP 146/95
--- NOTE | 2016-12-12 10:50 | NUR ---
PATIENT IN REHAB ROOM. WORKING WITH PHYSICAL THERAPIST. DENIES ANY PAIN/DISC AT THIS TIME
--- NOTE | 2016-12-12 11:27 | NUR ---
BACK FROM PT.RESTING QUIETLY IN BED.
--- NOTE | 2016-12-12 13:20 | NUR ---
CARE PLAN MEETING. DR. Lucia MARCIAL INTO SEE PATIENT. NO NEW ORDERS RECEIVED.
--- NOTE | 2016-12-12 15:00 | NUR ---
PRN PAIN MEDICATION GIVEN FOR NECK PAIN. PATIENT TURNING EYELET ROW MARKER LIGHT TO USE BATHROOM. WALKES WITH WHEELED WALKER TO BATHROOM WITH STANDBY ASST.
--- NOTE | 2016-12-12 16:52 | NUR ---
CARE TEAM MEETING: PATIENT ATTENDED MEETING. PLANS ARE FOR PATIENT TO RETURN HOME. TENATIVE DISCHARGE DATE IS 12/21/16. HIS PCP IS DR. MANCUSO AND HE USES [facility] ON [address]. WILL CONTINUE TO FOLLOW WITH PATIENT UNTIL DISCHARGED
--- NOTE | 2016-12-12 17:46 | NUR ---
PATIENT HAS ON NECK BRACE WHILE UP IN WHEELCHAIR TO EAT SUPPER.
--- NOTE | 2016-12-12 19:45 | NUR ---
PT ENCOURAGED TO WEAR NECK BRACE WHEN GETTING UP TO GO TO BATHROOM. PT STATES HE PREFERS NOT TO. PT RESPIRATIONS REGULAR AND UNLABORED, NO S/S OF ACUTE DISTRESS.
[2016-12-12 20:35] VITALS: BP 130/89
--- NOTE | 2016-12-12 21:00 | NUR ---
INCISION CLEANSED, WORKED ON RIDDING THE SKIN AROUND THE SITE OF THE TAPE RESIDUE WHICH IS MESHED IN WITH NECK HAIR. INCISION WITHOUT REDENESS, DRAINAGE OR SWELLING.
--- NOTE | 2016-12-13 04:07 | NUR ---
PT RESTING QUIETLY, NO S/S OF ACUTE DISTRESS, RESPIRATIONS REGULAR AND UNLABORED.
--- NOTE | 2016-12-13 05:28 | NUR ---
REMOVED GLUE FROM BELLA INCISION SITE. INCISION WITHOUT REDNESS, SWELLING OR DRAINAGE.
--- NOTE | 2016-12-13 07:50 | NUR ---
PT IS RESTING IN BED WITH EYES OPEN. ALERT AND ORIENTED X 3. VOICED COMPLAINT OF BACK PAIN LEVEL OF 4. C COLLAR IS ON AND INTACT. NO NEEDS VOICED. SR'S ARE UP X 2 IN BED. CALL LIGHT AND BEDSIDE TABLE ARE WITHIN EASY REACH.
--- NOTE | 2016-12-13 10:06 | NUR ---
PT IS PARTICIPATING IN THERAPY AT THIS TIME.
[2016-12-13 11:35] VITALS: BP 129/96
--- NOTE | 2016-12-13 12:07 | RHP ---
PATIENT: FLO MATA MEDICAL RECORD: [id number] ACCOUNT: [id number] LOCATION:[facility]1112 : 58 ADMISSION DATE: 12/06/16 REHABILITATION HISTORY AND PHYSICAL EXAMINATION POST ADMISSION PHYSICIAN EXAMINATION Post-admission Physical Exam and History and Physical DATE OF ADMISSION: 12/06/2016 ADMITTING DIAGNOSES: Severe spinal stenosis secondary to cervical spondylolisthesis at C3-C4. HISTORY OF PRESENT ILLNESS: The patient is admitted to the inpatient rehab for a severe spinal stenosis secondary to cervical spondylosis at C3-C4, status post surgery on 12/03/2016, was in the ED after attempting to get off a couch and was unable to walk. He thought his muscles were just useless and stated he was on the ground for approximately 4 hours. He is a 56-year-old gentleman with a history of hypothyroidism, remote history of alcohol and polysubstance abuse, reported being in good health otherwise. He is employed and active. Noted he fell about 10 feet on to his neck in September. On 11/12/2016, he was placed on Zetia and Flexeril. Since that time, over the past 1-2 weeks, he has been having increasing weakness, imbalance and incoordination. Did feel some clumsiness in his hands and numbness in his fingers. At some point, he was told to discontinue the Zetia. Continued on Flexeril. He was independent with both his ADLs and mobility and is still working. He is currently standby assist to moderate assist for ADLs, moderate assist and max assist for mobility. He lives at home and plans to return there, hopefully that his prior level of functioning are better. COMORBIDITIES: In this patient include severe spinal stenosis, ataxia, hypothyroidism, gross global cerebral dysfunction, history of alcohol and polysubstance abuse, recent falls, numbness and tingling in both of his hands, elevated creatinine kinase on admit and elevated CK-MB on admit. PAST MEDICAL HISTORY: Significant for vertigo, thyroid problems, BiPAP and CPAP, but apparently does not wear and apparently he has had a former ____ for over 30 years, but he has been sober for the past 25. PAST SURGICAL HISTORY: He has had a gallbladder surgery, hernia and torn meniscus to his knee. ALLERGIES: No known drug allergies. CURRENT MEDICATIONS: Include a multivitamin daily, Synthroid 25 mcg daily, ____ mg daily, omega 3 one cap daily, Lovenox 40 mg subQ daily, vitamin D daily, ascorbic acid, vitamin C 500 mg daily, he is on a tapering Dosepak of Medrol, he is on Zofran p.r.n. nausea and vomiting, he is on Macrodantin 100 mg b.i.d., Robaxin 500 mg t.i.d. p.r.n. spasm, Motrin 600 q.6 hours p.r.n., [place] 5/325 as needed for pain, Colace 100 mg b.i.d., and Tylenol p.r.n. HABITS: No current alcohol or tobacco use. FAMILY HISTORY: Noncontributory. HISTORY AND PHYSICAL [id number] FLO MATA SOCIAL HISTORY: The patient hopes to return back home and get back to his prior level of functioning. REVIEW OF SYSTEMS: GENERAL: Does complain of weakness and fatigue. HEENT: Denies cold, cough, or congestion. CARDIOVASCULAR: Denies chest pain. PHYSICAL EXAMINATION: VITAL SIGNS: Stable, afebrile. GENERAL: A morbidly obese gentleman in no acute distress, alert upon exam. HEENT: Normocephalic, atraumatic. Mucosa moist. TMs are shiny and mobile. NECK: Supple. No lymphadenopathy. LUNGS: Clear at this time. HEART: Regular rate and rhythm. ABDOMEN: Benign. EXTREMITIES: No clubbing, cyanosis or edema. NEUROLOGIC: Does have weakness in both his lower extremities and also has some decreased rf engineer strength. LABORATORY DATA: His white count is 13.7, H&H of 18 and 52.7 and his platelet count is noted to be 195. Sodium 135, potassium 4.3, BUN and creatinine of 21 and 0.7, blood sugar is noted to be 151. ASSESSMENT: This is a 56-year-old gentleman who is admitted to rehab with a working diagnosis of severe spinal stenosis in his cervical region. The patient has potential to make improvement. We instituted the following multidisciplinary therapies including to, but not limited to physical, occupational, respiratory, speech, nutritional services, prosthetics and orthotics. Given his complex condition and risk for more complications, rehabilitation services cannot be provided at a low level of care such as a jail facility. PLAN: 1. Admit to [facility] rehab for intensive inpatient therapy to include the following disciplines: A. Physical therapy to improve gait, all transfer skills and bed mobility to a modified independent level. B. Occupational therapy to improve ____ modified independent level. C. Case management to assist with discharge planning and placement options. D. Nutrition to assist with nutritional needs. E. Rehabilitation nursing to assist in monitoring the patient's underlying medical conditions and to assist with any type of bowel or bladder management. 2. The patient's current medications and medical care will be continued. 3. The patient will be placed on standard fall precautions. 4. The patient's estimated length of stay is approximately 7-10 days. 5. Discuss this patient during care team staff meeting this week. TRANSINT:[id number] Voice Confirmation ID: [id number] DOCUMENT ID: [id number] AZEEM notes whether there has been none or any medical/functional change since admission: - No change since admit. HISTORY AND PHYSICAL [id number] FLO MATA attests patient continues to be appropriate for IRF: - The patient continues to appropriate for IRF. WANDA MARCIAL MD at 1207 CC: [id number] DICTATION DATE: 12/07/16 0837 BABYSITTER: 12/07/16 0958 ADM IN [facility] [address] [id number]
--- NOTE | 2016-12-13 12:10 | NUR ---
PT APPROACHED NURSES STATION DEMANDING TO HAVE HIS C COLLAR REMOVED. HE STATED IT WAS TO HOT, AND IT WAS MISERABLE TO WEAR. IT WAS MAKING HIM HAVE NAUSEA AND SHORTNESS OF BREATH. I ENCOURAGED PT TO CALM DOWN, HE WAS VERY ANGRY, AND CHECKED TO COLLAR. IT IS ON IN GOOD POSITION, AND FITS SNUG. PT STATED HE WANTED IT OFF ANYWAY. I INFORMED HIM THAT HE HAD TO WEAR IT AT ALL TIMES WHEN OUT OF BED. HE STATED, WELL THAT IS NOT WHAT THEY TOLD ME IN ICU. I INSTRUCTED HIM ON HIS REHAB MD ORDER. HE THEN TRANSFERRED HIMSELF INTO BED AND DEMANDED IT BE TAKEN OFF. I REMOVED THE COLLAR, AND AGAIN EDUCATED HIM ON PRECAUTIONS. HE VOICED VERBAL UNDERSTANDING, BUT IS STILL ANGRY. SPOUSE IS AT BEDSIDE.
--- NOTE | 2016-12-13 14:26 | NUR ---
CLINICALS FAXED TO [facility] , FAX # . AUTH # [id number] WITH CONFORMATION RECIEVED
--- NOTE | 2016-12-13 14:39 | NUR ---
PT IS AMBULATING WITH THERAPY AT THIS TIME. NO NEEDS VOICED.
--- NOTE | 2016-12-13 16:00 | NUR ---
DENIES NEEDS.IN BED RESTING.CL IN REACH.
--- NOTE | 2016-12-13 17:34 | NUR ---
PT IS RESTING IN BED WITH EYES OPEN. FEEDING SELF SUPPER. NO COMPLAINT VOICED.
[2016-12-13 20:19] VITALS: BP 137/86
--- NOTE | 2016-12-13 23:05 | NUR ---
PT. IN BED WITH HOB UP FOR COMFORT WITH EYES CLOSED AND RESP. DEEP AND EVEN. SOFT COLLAR IS PRESENT AND PT. KNOWS HE DOESN'T HAVE TO WEAR IT IN BED, BUT ONLY WHEN OOB. CALL LIGHT WITHIN REACH.
--- NOTE | 2016-12-14 03:00 | NUR ---
PT. IN BED WITH HOB UP FOR COMFORT AND SOFT C-COLLAR IN PLACE. PT. WATCHING TV OFF AND ON AND THEN WILL FALL ASLEEP. CALL LIGHT WITHIN REACH.
--- NOTE | 2016-12-14 07:41 | NUR ---
RESTING QUIETLY IN BED CALL LIGHT IN REACH
--- NOTE | 2016-12-14 10:36 | NUR ---
PATIENT IN REHAB ROOM. WORKING WITH PHYSICAL THERAPIST. DENIES ANY PAIN/DISC AT THIS TIME
[2016-12-14 11:17] VITALS: BP 113/83
--- NOTE | 2016-12-14 12:00 | NUR ---
PATIENT SITTING UP IN A WHEELCHAIR. SOFT NECK COLLOR ON.
--- NOTE | 2016-12-14 14:24 | NUR ---
PATIENT IS ALERT/ORIENT X4. STAND BY ASST FOR TRANSFERS. PATIENT WEARING SOFT COLLAR WHEN UP OUT OF BED. USING CALL LIGHT FOR NEEDS. SHOWER TODAY WITH HELP TO SET UP FROM NURSE ASST.
--- NOTE | 2016-12-14 17:53 | NUR ---
PATIENT HAS BEEN WEARING HIS SOFT NECK COLLAR WHEN OUT OF BED
[2016-12-14 19:08] VITALS: BP 109/74
--- NOTE | 2016-12-14 19:15 | NUR ---
PT RECEIVED IN BED WITH EYES OPEN VISITING WITH AT BEDSIDE. COMPLAINS OF DISCOMFORT TO LEFT SHOULDER AND NECK AND REQUEST PRN MOTRIN WITH HS MEDICATIONS. NO OTHER CONCERNS AND LEFT FACILITY. CALL LIGHT IN REACH. WILL CONTINUE TO OBSERVE
--- NOTE | 2016-12-15 01:22 | NUR ---
PT IN BED WITH EYES CLOSED AND CHEST RISING. NO SIGN/SYMPTOMS OF DISTRESS NOTED. CALL LIGHT IN REACH. WILL CONTINUE TO OBSERVE.
--- NOTE | 2016-12-15 03:28 | NUR ---
PT IN BED AT THIS TIME. OBSERVED TRANSFER TO WHEELCHAIR TO GO TO BATHROOM WITHOUT DIFFICULTY. NO CONCERNS NOTED. CALL LIGHT IN REACH.
--- NOTE | 2016-12-15 08:40 | NUR ---
PT AM MEDS ADMINISTERED. PT EATING BREAKFAST, DENIES NEEDS.
--- NOTE | 2016-12-15 11:20 | NUR ---
PT RESTING, IN ROOM. DENIES NEEDS. BED LOW. CL IN REACH.
[2016-12-15 12:43] VITALS: BP 129/93
--- NOTE | 2016-12-15 15:15 | NUR ---
PT HAS VISITORS IN ROOM, DENIES NEEDS.
--- NOTE | 2016-12-15 18:06 | NUR ---
PT EATING DINNER, DENIES NEEDS. BED LOW. CL IN REACH.
--- NOTE | 2016-12-15 18:30 | NUR ---
RESTING QUIETLY IN BED CALL LIGHT IN REACH
[2016-12-15 19:00] VITALS: BP 114/73
--- NOTE | 2016-12-15 19:32 | NUR ---
PT RECEIVED IN BED WITH EYES OPEN VISITING WITH FAMILY. MINOR PAIN REPORTED TO LEFT SHOULDER AND NECK WITH REQUEST OF PRN MOTRIN WITH HS MEDICATIONS. NO OTHER NEEDS OR CONCERNS MADE KNOWN. CALL LIGHT IN REACH. WILL CONTINUE TO OBSERVE.
--- NOTE | 2016-12-16 00:23 | NUR ---
PT IN BED WITH EYES CLOSED AND CHEST RISING AT THIS TIME. RECEIVED HS MEDICATIONS PER MAR WITH PRN MOTRIN. REFUSED COLASE STATING HE DID NOT NEED IT. NO NEEDS OR CONCERNS MADE KNOWN. CALL LIGHT IN REACH. WILL CONTINUE TO OBSERVE.
--- NOTE | 2016-12-16 04:38 | NUR ---
PT IN BED WITH EYES CLOSED AND CHEST RISING. NO CONCERNS NOTED. CALL LIGHT IN REACH.
--- NOTE | 2016-12-16 08:10 | NUR ---
PT TALKING ON PHONE, BREAKFAST AT BEDSIDE. PT DENIES NEEDS.
--- NOTE | 2016-12-16 08:31 | NUR ---
SITTING UP EATING BREAKFAST DENIES NEEDS CALL LIGHT IN REACH
--- NOTE | 2016-12-16 09:58 | NUR ---
PT RESTING IN BED WATCHING TV. WCTM.
[2016-12-16 10:18] VITALS: BP 117/86
--- NOTE | 2016-12-16 11:53 | NUR ---
PT SHOWERED. UP IN WAITING FOR LUNCH. TM.
--- NOTE | 2016-12-16 14:06 | NUR ---
PT RESTING IN BED WATCHING TV. PT DENIES NEEDS.
--- NOTE | 2016-12-16 19:45 | NUR ---
PT RECEIVED UP IN WHEELCHAIR WATCHING TV. NO CONCERN MADE KNOWN AT THIS TIME. CALL LIGHT IN REACH. WILL CONTINUE TO OBSERVE.
--- NOTE | 2016-12-16 23:07 | NUR ---
PT IN BED WITH EYES OPEN WATCHING TV. RECEIVED HS MEDICATIONS WITH PRN MOTRIN FOR PAIN OF 3/10 TO LEFT SHOULDER AND NECK. NO COMPLANTS OR CONCERN NOTED AT THIS TIME. CALL LIGHT IN REACH.
[2016-12-17 00:43] VITALS: BP 146/77
--- NOTE | 2016-12-17 03:40 | NUR ---
PT IN BED WITH EYES CLOSED AND CHEST RISING. NO CONCERNS NOTED AT THIS TIME. CALL LIGHT IN REACH.
--- NOTE | 2016-12-17 06:38 | NUR ---
PT IN BED WITH EYES CLOSED AND CHEST RISING. RECEIVED AM MEDICATIONS WITHOUT DIFFICULTY. NO CONCERNS OR REQUEST MADE KNOWN. CALL LIGHT IN REACH.
[2016-12-17 08:00] VITALS: BP 120/88
--- NOTE | 2016-12-17 08:16 | NUR ---
SITTING UP EATING BREAKFAST DENIES NEEDS CALL LIGHT IN REACH
--- NOTE | 2016-12-17 09:52 | NUR ---
PATIENT IN REHAB ROOM WORKING WITH PHYSICAL THERAPIST. DENIES ANY PAIN/DISC AT THIS TIME. DR. Maribel MARCIAL INTO SEE PATIENT. NO NEW ORDERS RECEIVED.
--- NOTE | 2016-12-17 13:11 | NUR ---
NECK BRACE ON AT ALL TIMES WITH PATIENT IS UP OF BED
--- NOTE | 2016-12-17 17:39 | NUR ---
PATIENT SITTING UP IN A WHEELCHAIR AT BEDSIDE TO EAT SUPPER. SOFT NECK COLLOR ON
[2016-12-17 19:24] VITALS: BP 134/88
--- NOTE | 2016-12-17 19:30 | NUR ---
PT RECEIVED IN BED WITH EYES CLOSED AND CHEST RISING. EASILY AROUSED TO VERBAL STIMULI. COMPLAINS OF 3/10 PAIN TO LEFT SHOULDER. NO OTHER NEEDS MADE KNOWN AT THIS TIME. CALL LIGHT IN REACH.
--- NOTE | 2016-12-18 00:06 | NUR ---
PT IN BED WITH EYES OPEN WATCHING TV. NO CONCERNS MADE KNOWN. CALL LIGHT IN REACH. WILL CONTINUE TO OBSERVE.
--- NOTE | 2016-12-18 03:25 | NUR ---
PT IN BED WITH EYES CLOSED AND CHEST RISING. NO CONCERNS NOTED AT THIS TIME. CALL LIGHT IN REACH.
--- NOTE | 2016-12-18 07:05 | NUR ---
PT RESTING, RESPIRATIONS EVEN, BED IN LOW POSITION, SIDE RAILS UP X'S 2, CALL LIGHT WITHIN REACH, WILL CONTINUE TO MONITOR,
--- NOTE | 2016-12-18 08:30 | NUR ---
MORNING MEDICATION GIVEN, ASSISTED PT TO RESTROOM AND BACK TO BED VIA WHEELCHAIR, PT TOLERATED WELL, WILL CONTINUE TO MONITOR, CALL LIGHT WITHIN REACH.
--- NOTE | 2016-12-18 09:58 | NUR ---
PT IN PT. WILL CONTINUE TO MONITOR,
[2016-12-18 10:33] VITALS: BP 114/75
--- NOTE | 2016-12-18 11:46 | NUR ---
PT RESTING IN BED WATCHING TV, PT STATES NO NEEEDS AT THIS TIME, WILL CONTINUE TO MONITOR, CALL LIGHT WITHIN REACH.
--- NOTE | 2016-12-18 13:51 | NUR ---
PT IN PT.
--- NOTE | 2016-12-18 17:22 | NUR ---
PT RESTING IN BED WATCHING TV, PT STATES NO NEEDS AT THIS TIME, WILL CONTINUE TO MONITOR, CALL LIGHT WITHIN REACH.
--- NOTE | 2016-12-18 17:50 | NUR ---
SITTING UP IN CHAIR EATING SUPPER.
--- NOTE | 2016-12-18 20:00 | NUR ---
PT IN W/C. WATCHING TV. NO IV. NO O2. ALERT & ORIENTED. SOFT COLLAR FOR WHEN IN BED. LEFT SHOULDER PAIN. CALL LIGHT WITHIN REACH.
[2016-12-18 20:09] VITALS: BP 110/76; BP 150/93
--- NOTE | 2016-12-19 | NUR ---
PT IN BED WITH HOB UP FOR COMOFRT. WATCHING TV. BED IN LOWEST POSITION AND CALL LIGHT WITHIN REACH.
--- NOTE | 2016-12-19 00:20 | NUR ---
RESTING IN BED, EYES CLOSED. NO DISTRESS NOTED.
--- NOTE | 2016-12-19 04:00 | NUR ---
PT LYING IN BED. RESTING QUIETLY. BED IN LOWEST POSITION AND CALL LIGHT WITHIN REACH.
--- NOTE | 2016-12-19 07:50 | NUR ---
SITTING UP IN CHAIR EATING BREAKFAST.CL IN REACH.
--- NOTE | 2016-12-19 09:21 | NUR ---
PATIENT IS ALERT/ORIENT X4. UP IN WHEELCHAIR WITH STANDBY ASST. CALL LIGHT WITH REACH. VOICES NO NEEDS AT THIS TIME.
--- NOTE | 2016-12-19 09:23 | NUR ---
DR. Lucia MARCIAL INTO SEE SEE PATIENT. NO NEW ORDERS RECEIVED.
[2016-12-19 09:27] VITALS: BP 97/58
--- NOTE | 2016-12-19 12:31 | NUR ---
PRN MOTRIN GIVEN FOR NECK PAIN. PATIENT IS WEARING SOFT COLOR WHEN UP OUT OF BED.
--- NOTE | 2016-12-19 13:43 | NUR ---
PATIENT WORKING IN REHAB ROOM WITH PHYSICAL THERAPIST. DENIES ANY PAIN/DISC AT THIS TIME
--- NOTE | 2016-12-19 16:58 | NUR ---
CARE TEAM MEETING: TENATIVE DISCHARGE DATE IS 12/21/16. PATIENT PLANS ON RETURNING HOME. HE WILL BE IN NEED OF BSC, WLAKER OR WHEELCHAIR. HE WILL HAVE HOME HEALTH AT TIME OF DISCHARGE. WILL CONTINUE TO FOLLOW WITH PATIENT UNTIL DISCHARGED
--- NOTE | 2016-12-19 17:32 | NUR ---
PATIENT TALKING ABOUT DISCHARGE ON SATURDAY TO THIS NURSE. THIS NURSE TOLD PATIENT THAT rGey MAYORGA WILL SET UP HOME CARE NEEDS
[2016-12-19 18:58] VITALS: BP 116/82
--- NOTE | 2016-12-19 20:00 | NUR ---
PT IN BED WITH HOB UP FOR COMOFRT. WATCHING TV. ALERT & ORENTED. SOFT COLLAR ON. NO 02. NO IV. BED IN LOWEST POSITION AND CALL LIGHT WITHIN REACH.
--- NOTE | 2016-12-20 | NUR ---
PT IN BED WITH HOB UP FOR COMOFRT. EYES CLOSED. CHEST RISING AND FALLING. BED IN LOWEST POSITION AND CALL LIGHT WITHIN REACH.
--- NOTE | 2016-12-20 02:50 | NUR ---
RESTING IN BED, EYES CLOSED. EARLIER PATIENT GOT UP TO BR ALONE AND WAS REMINDED TO CALL FOR ASSIST HE STILL IS UNSTEADY ON HIS FEET.
--- NOTE | 2016-12-20 06:46 | NUR ---
RESTING QUIETLY IN BED CALL LIGHT IN REACH
--- NOTE | 2016-12-20 11:35 | NUR ---
PT SITTING UP IN WC, FAMILY AT SIDE ASSISTING WITH NEEDS. WCTM.
[2016-12-20 14:31] VITALS: BP 117/78
--- NOTE | 2016-12-20 14:42 | NUR ---
PT SITTING UP IN WC WATCHING TV, DENIES NEEDS.
[2016-12-20 19:10] VITALS: BP 125/77
--- NOTE | 2016-12-20 19:49 | NUR ---
PT RECEIVED SITTING ON SIDE OF BED VISITING WITH FRIENDS. NO CONCERNS NOTED. COMPLAINS OF DISCOMFORT TO LEFT SHOULDER /. TRANSFERRED TO WHEELCHAIR WITHOUT ASSIST TO BATHROOM WITHOUT DIFFICULTY AND RETURNED TO BED WITHOUT DIFFICULTY. WILL CONTINUE TO OBSERVE. CALL LIGHT IN REACH.
--- NOTE | 2016-12-20 23:35 | NUR ---
PT IN BED WITH EYES OPEN WATCHING TV. NO CONCERNS NOTED AT THIS TIME. CALL LIGHT IN REACH. WILL CONTINUE TO OBSERVE.
--- NOTE | 2016-12-21 02:29 | NUR ---
PT IN BED WITH EYES CLOSED AND CHEST RISING. NO CONCERNS NOTED AT THIS TIME. CALL LIGHT IN REACH.
[2016-12-21 06:04] LABS: BASOPHILS 0.4 % (0-2); EOSINOPHILS 2.5 % (0-7); HEMATOCRIT 41.8 % (42.0-54.0); HEMOGLOBIN 13.9 g/dL (13.5-17.5); IMMATURE GRANULOCYTES 0.4 % (0-5); LYMPHOCYTES 33.2 % (15-50); MCH 30.6 pg (26.0-34.0); MCHC 33.3 g/dL (31.0-37.0); MCV 92.1 fL (80.0-100.0); MONOCYTES 10.6 % (2-11); NEUTROPHILS 52.9 % (40-80); PLATELET COUNT 204 10x3/uL (130-400); RBC 4.54 10x6/uL (4.20-6.10); WBC 5.2 10x3/uL (4.8-10.8)
[2016-12-21 06:18] LABS: CALC OSMOLALITY 283 mosm/kg (275-300); CALCIUM 8.8 mg/dL (8.5-10.1); CARBON DIOXIDE 30.8 mmol/L (21.0-32.0); CHLORIDE - SERUM 105 mmol/L (98-107); CREATININE - SERUM 0.8 mg/dL (0.6-1.3); GLUCOSE 85 mg/dL (74-106); SODIUM 143 mmol/L (136-145); UREA NITROGEN 12 mg/dL (7-18); eGFR NON AFRICAN AMERICAN > 90 mL/min (90-120)
--- NOTE | 2016-12-21 06:21 | NUR ---
PT IN BED WITH EYES CLOSED AND CHEST RISING. AM MEDICATIONS GIVEN PER MAR WITHOUT DIFFICULY. NO CONCERNS NOTED. CALL LIGHT IN REACH,
--- NOTE | 2016-12-21 07:00 | NUR ---
PT WAS RECEIVED AT THE BEGINNING OF THIS SHIFT IN BED AWAKE AND ORIENTED X 4. NO VOICED COMPLAINTS AT THIS TIME. VITAL SIGNS WNL. STABLE CONDITION OBSERVED. CALL LIGHT IS IN REACH. PT WILL BE DISCHARGING TODAY.
[2016-12-21 07:56] VITALS: BP 114/79
--- NOTE | 2016-12-21 09:54 | NUR ---
PATIENT DISCHARIGN HOME WITH [facility]. [facility] WILL DELIVER A WHEELCHAIR AND BSC. APPOITMENTS: DR. MANCUSO 12/27/16 @ 2:45, DR. JAMISON 12/31/16 @ 9:00, PATIENT TO BE AT [facility] ON 12/31/16 @ 8:[address] PRIOR TO DR[address] JAMISON APPOINTMENT. PATIENT CHOICE FORM FOR HOME HEALTH SIGNED AND FILED IN CHART.
--- NOTE | 2016-12-21 12:41 | NUR ---
PT WAS JUST DISCHARGED. HE WAS WHEELED OUTSIDE TO AWAITING CAR AND HIS BY A MALE NURSE ON THE FLOOR. STABLE CONDITION OBSERVED. DISCHARGE PAPERWORK WAS TAKEN WITH HIM. HE LEFT BEHIND SOME PERSONAL ITEMS IN HIS ROOM.
== END 2016-12-21 12:43 | disposition home health service (06) | DRG 552 ==
LOC: D.REHAB 13:56
PROVIDERS: ADMIT Emergency Medicine
DX: M48.02 Spinal stenosis, cervical region (principal); R27.0 Ataxia, unspecified; E03.9 Hypothyroidism, unspecified; G93.89 Other specified disorders of brain; Z91.81 History of falling; R20.0 Anesthesia of skin

== ENCOUNTER → 2016-12-31 08:14 | Outpatient (CLI) | payer OTHER ==
[2016-12-07 13:52] VITALS: BMI 35.7
== END | disposition home or self-care (01) ==
LOC: D.RAD 08:00
DX: M48.01 Spinal stenosis, occipito-atlanto-axial region (principal); M48.02 Spinal stenosis, cervical region

== ENCOUNTER → 2017-01-10 14:14 | Outpatient (CLI) | payer OTHER ==
[2016-12-07 13:52] VITALS: BMI 35.7
== END | disposition home or self-care (01) ==
LOC: D.MRI 14:14
DX: M47.12 Other spondylosis with myelopathy, cervical region (principal); T84.226A Displacement of internal fixation device of vertebrae, initial encounter

== ENCOUNTER 2020-02-22 13:26 | Emergency (ER) | payer MEDICARE, BC ==
[~2020-02-22] VITALS: Ht 188 cm; Wt 100.0 kg
[2020-02-22 14:06] VITALS: BP 104/74; Ht 188 cm; Wt 100.0 kg
== END 2020-02-22 17:11 | disposition home or self-care (01) ==
LOC: D.ER 13:26
DX: M54.9 Dorsalgia, unspecified (principal); M54.16 Radiculopathy, lumbar region; E07.9 Disorder of thyroid, unspecified; R53.1 Weakness

== ENCOUNTER 2020-10-20 16:58 | Inpatient (IN) | payer MEDICARE, BC ==
[~2020-10-20] VITALS: Ht 188 cm; Wt 102.1 kg
--- NOTE | ~2020-10-20 | RHP ---
PATIENT: FLO MATA MEDICAL RECORD: [id number] ACCOUNT: [id number] LOCATION:[facility]1117 : 58 ADMISSION DATE: 10/21/20 REHABILITATION HISTORY AND PHYSICAL EXAMINATION POST ADMISSION PHYSICIAN EXAMINATION ADMITTING DIAGNOSIS: Lumbar laminectomy. HISTORY OF PRESENT ILLNESS: The patient admitted secondary to a lumbar laminectomy and interbody fusion that was done posteriorly. He had this done on 10/18/[address] Aaron. He is a 60-year-old gentleman who sees Dr. Menjivar who presented with progressive weakness and balance issues. He has denied any bowel or bladder issues. He has got a history of spinal stenosis and neuropathy and peripheral vascular disease. Prior to his decline with weakness and balance issues, he was living alone, was independent with his ADLs and mobility, requiring no assist device. He is currently mod assist x2 with a gait belt and rolling walker to ambulate 10 feet. He transfers and complete sit to stand with mod assist. He is min to mod assist with ADLs. He will require intensive therapy to get back to his prior level of function and return home. Currently, he has been monitored closely for lab values, medication adjustments, pain control, decreased activity tolerance, decreased strength, proximal muscle weakness, balance deficits, decreased range of motion, gait disturbance, impaired mobility, dyspnea on exertion, high fall risk and self-care deficits. These are all barriers to his discharge home. Comorbidities include arthritis, peripheral vascular disease, spinal stenosis, weakness and neuropathy. PAST MEDICAL HISTORY: Significant for arthritis, prostate cancer, hyperlipidemia, hypothyroidism, neuropathy due to peripheral vascular disease, obstructive sleep apnea. PAST SURGICAL HISTORY: Includes cholecystectomy, knee scope, spinal surgery. He has had a foraminal surgery and cervical laminectomy done in the past. ALLERGIES: No known drug allergies. CURRENT MEDICATIONS: Include thiamine 100 mg daily, he is on selenium daily, potassium 99 mg daily, omega-3 one cap daily, multivitamin 1 tab daily, he is on mag 400 mg daily, Zetia 10 mg daily, he is on cinnamon bark extract every day, vitamin D 2000 units daily, ascorbic acid 1000 mg daily, Tylenol 500 every 4 hours, Tramadol 50 mg every 4 hours, MiraLax 17 grams in 8 ounces of water daily, meloxicam 15 mg daily, and ibuprofen as needed. HABITS: No alcohol or tobacco use. FAMILY HISTORY: Noncontributory. SOCIAL HISTORY: The patient hopes to return back home and get back to his prior level of functioning. REVIEW OF SYSTEMS: GENERAL: Does complain of weakness. HEENT: Denies cold, cough or congestion. CARDIOVASCULAR: Denies any chest pain. PHYSICAL EXAMINATION: HISTORY AND PHYSICAL [id number] FLO MATA VITAL SIGNS: Stable, afebrile. GENERAL: A somewhat obese gentleman in no acute distress upon exam. HEENT: Normocephalic and atraumatic. Mucosa moist. NECK: Supple with no lymphadenopathy. LUNGS: Clear in the upper greer. No wheezing or rales. HEART: Regular rate and rhythm. No murmurs, rubs or gallops. ABDOMEN: Soft, benign, nondistended. Positive bowel sounds times 4. EXTREMITIES: No clubbing, cyanosis or edema. NEUROLOGICAL: Does have some weakness, especially in the proximal muscles of his upper thighs. LABORATORY DATA: His white count is 6.6, H&H of 12 and 37 and platelet count is 261. Sodium 141, potassium 4.0, BUN and creatinine of 15 and 0.7 and blood sugar is noted to be 109. ASSESSMENT: This is a 60-year-old gentleman admitted to rehab with a working diagnosis of status post lumbar laminectomy. The patient has potential to make improvement. We instituted the following multidisciplinary therapies include, not limited to physical, occupational, respiratory, speech, nutritional services, prosthetics and orthotics. Given his complex medical condition and risks for more complications, rehabilitation services cannot be provided at a low level of care such as halfway facility. PLAN: 1. Admit to [place] [facility] for inpatient therapy to include the following disciplines; A. Physical therapy to improve gait, all transfer skills and bed mobility to a modified independent level. B. Occupational therapy to improve activities of daily living. C. Case management to help with discharge planning and placement options. D. Nutrition to assist with nutritional needs. E. Rehabilitation nursing to assist in monitoring the patient's underlying medical conditions and to assist with any type of bowel or bladder management. 2. The patient's current medication and Medicare will be continued. 3. Placed on standard fall precautions. 4. The patient's estimated length of stay is approximately 7-10 days. 5. We will discuss this patient during care team staff meeting this week. TRANSINT:[id number] Voice Confirmation ID: [id number] DOCUMENT ID: [id number] 10/25/2020 Edited for robin GANN. AZEEM notes whether there has been none or any medical/functional change since admission: - No change since preadmission screen. AZEEM attests patient continues to be appropriate for IRF: - Contiues to be appropriate. HISTORY AND PHYSICAL [id number] FLO MATA JOHN SCOTT MD CC: [id number] DICTATION DATE: 10/22/20 1202 WAREHOUSE RECEIVER: 10/22/20 1538 ADM IN [facility] [address] [id number]
--- NOTE | 2020-10-21 15:33 | NUR ---
PATIENT ADMITTED TO REHAB FROM [facility]. HIS PCP IS DR. MANCUSO. DME AT HOME IS A [facility]. DISCHARGE PLANS ARE FOR PATIENT TO RETURN TO HIS HOME. WILL CONTINUE TO FOLLOW WITH PATIENT.
[2020-10-21 15:56] VITALS: BP 126/82; BMI 28.9
[2020-10-21] MEDS ORDERED: ZETIA10 MG PO (16:14)
[2020-10-21] MEDS ORDERED: MAG-OX 400 MG400 MG PO (16:16)
[2020-10-21] MEDS ORDERED: MOBIC7.5 MG PO (16:17)
[2020-10-21] MEDS ORDERED: MIRALAX17 GM PO (16:19)
[2020-10-21] MEDS ORDERED: POTASSIUM99 M1 PO (16:20)
[2020-10-21] MEDS ORDERED: ULTRAM50 MG PO (16:20)
[2020-10-21] MEDS ORDERED: CIALIS10 MG PO (16:22)
[2020-10-21] MEDS ORDERED: VITAMIN B-1100 M1 PO (16:23)
--- NOTE | 2020-10-21 20:14 | NUR ---
AWAKE AND ALERT. RESPIRATIONS UNLABORED. DRESSING TO BACK DRY AND INTACT. NO ACUTE IDSTRESS NOTED. CALL LIGHT IN REACH.
[2020-10-21 21:33] VITALS: BP 110/73
--- NOTE | 2020-10-22 05:34 | NUR ---
QUIET HOURS. NO ACUTE CHANGES IN CONDITION THIS SHIFT. RESTING IN BED WITH NO DISTRESS NOTED.
[2020-10-22 06:16] LABS: BASOPHILS 0.2 % (0-2); EOSINOPHILS 1.5 % (0-7); HEMATOCRIT 37.5 % (42.0-54.0); HEMOGLOBIN 12.1 g/dL (13.5-17.5); IMMATURE GRANULOCYTES 0.2 % (0-5); LYMPHOCYTE ABS# 1.33 10x3/uL (1.32-3.57); LYMPHOCYTES 20.1 % (15-50); MCH 29.7 pg (26.0-34.0); MCHC 32.3 g/dL (31.0-37.0); MCV 92.1 fL (80.0-100.0); MEAN PLATELET VOLUME 10.5 fL (7.4-10.4); PLATELET COUNT 261 10x3/uL (130-400); RBC 4.07 10x6/uL (4.20-6.10); RDW 13.2 % (11.5-14.5); WBC 6.6 10x3/uL (4.8-10.8)
[2020-10-22 06:28] LABS: CALC OSMOLALITY 282 mosm/kg (275-300); CALCIUM 8.6 mg/dL (8.5-10.1); CARBON DIOXIDE 31.2 mmol/L (21.0-32.0); CHLORIDE - SERUM 105 mmol/L (98-107); CREATININE - SERUM 0.7 mg/dL (0.6-1.3); GLUCOSE 109 mg/dL (74-106); SODIUM 141 mmol/L (136-145); UREA NITROGEN 15 mg/dL (7-18); eGFR NON AFRICAN AMERICAN > 90 mL/min (90-120)
--- NOTE | 2020-10-22 08:00 | NUR ---
SHIFT ASSMT COMPLETED.
[2020-10-22 08:53] VITALS: BP 109/69
[2020-10-22 12:12] VITALS: Ht 188 cm; Wt 102.1 kg
[2020-10-22 19:00] VITALS: BP 123/74
--- NOTE | 2020-10-22 19:37 | NUR ---
AWAKE AND ALERT. RESTINING IN BED WITH RESPIRATIONS UNLABORED. NO DISTRESS NOTED. CALL LIGHT IN REACH.
--- NOTE | 2020-10-23 05:04 | NUR ---
QUIET HOURS. NO ACUTE CHANGES IN CONDITION THIS SHIFT. RESTING IN BED WITH NO DISTRESS NOTED.
--- NOTE | 2020-10-23 08:00 | NUR ---
SHIFT ASSMT COMPLETED.
[2020-10-23 08:08] VITALS: BP 122/82
--- NOTE | 2020-10-23 12:00 | NUR ---
UP EATING LUNCH.
[2020-10-23 19:00] VITALS: BP 125/77
--- NOTE | 2020-10-23 19:16 | NUR ---
AWAKE AND ALERT. RESTING IN BED WITH RESPIRATIONS UNLABORED. DRESSING INTACT TO BACK. NO ACUTE DISTRESS NOTED. CALL LIGHT IN REACH.
--- NOTE | 2020-10-24 04:50 | NUR ---
QUIET HOURS. NO ACUTE CHANGES IN CONDITION THIS SHIFT, RESTING IN BED WITH NO DISTRESS NOTED.
[2020-10-24 06:57] LABS: BASOPHILS 0.3 % (0-2); EOSINOPHILS 1.5 % (0-7); HEMATOCRIT 41.4 % (42.0-54.0); HEMOGLOBIN 13.7 g/dL (13.5-17.5); IMMATURE GRANULOCYTES 0.7 % (0-5); LYMPHOCYTE ABS# 1.79 10x3/uL (1.32-3.57); LYMPHOCYTES 24.5 % (15-50); MCH 29.9 pg (26.0-34.0); MCHC 33.1 g/dL (31.0-37.0); MCV 90.4 fL (80.0-100.0); NEUTROPHIL ABS# 4.53 10x3/uL (1.78-5.38); RBC 4.58 10x6/uL (4.20-6.10); RDW 13.1 % (11.5-14.5); WBC 7.3 10x3/uL (4.8-10.8)
[2020-10-24 06:58] LABS: PLATELET COUNT 336 10x3/uL (130-400)
[2020-10-24 07:12] LABS: CALC OSMOLALITY 277 mosm/kg (275-300); CALCIUM 9.4 mg/dL (8.5-10.1); CARBON DIOXIDE 25.9 mmol/L (21.0-32.0); CHLORIDE - SERUM 101 mmol/L (98-107); CREATININE - SERUM 0.7 mg/dL (0.6-1.3); GLUCOSE 117 mg/dL (74-106); POTASSIUM - SERUM 4.2 mmol/L (3.5-5.1); SODIUM 138 mmol/L (136-145); UREA NITROGEN 15 mg/dL (7-18); eGFR NON AFRICAN AMERICAN > 90 mL/min (90-120)
[2020-10-24 08:00] VITALS: BP 119/76
--- NOTE | 2020-10-24 14:08 | NUR ---
Nutrition Follow-up Diet: Regular PO intake: ~79% average x last 6 meals Last BM: none since admit Wt: 225# (10/22/20) Meds noted: MVI, thiamin, magox Labs noted: Glu 117(H) Recommend continue current diet. Will continue to honor food preferences. RD will follow-up within 7 days.
--- NOTE | 2020-10-24 15:41 | NUR ---
PT CONSTIPATED. NURSE TRIED TO REMOVE IMPACTION. MINIMAL SUCCESS. PT GIVEN LAXATIVES
[2020-10-24 19:33] VITALS: BP 118/75
--- NOTE | 2020-10-24 19:43 | NUR ---
BEDSIDE REPORT COMPLETE. RECEIVED PT LYING IN BED EYES CLOSED RESTING. NO DISTRESS NOTED. EASILY AROUSED WITH STIMULI. DENIES ANY PAIN OR NEEDS. LUMBAR INCISION WITH DRESSING INTACT. NO IV OR OXYGEN NOTED. CALL LIGHT AND WATER WITHIN REACH. FALL PRECAUTIONS IN PLACE. CPOC
--- NOTE | 2020-10-25 01:15 | NUR ---
PT CALLED REQUESTING URINAL EMPTIED. 300ML CLEAR YELLOW URINE EMPTIED. DENIES ANY OTHER NEEDS. CALL LIGHT WITHIN REACH.
--- NOTE | 2020-10-25 05:20 | NUR ---
PT LYING IN BED ON RIGHT SIDE EYES CLOSED RESTING. NO DISTRESS NOTED. NO ACUTE CHANGES IN CONDITION THIS SHIFT. CALL LIGHT WITHIN [facility]. FALL PRECAUTIONS IN PLACE. CPOC
[2020-10-25 08:01] VITALS: BP 127/77
--- NOTE | 2020-10-25 19:08 | NUR ---
BEDSIDE REPORT COMPLETE. RECEIVED PT LYING IN BED. ALERT AND ORIENTED X4. DENIES ANY NEEDS OR PAIN. NO IV OR OXYGEN NOTED. LUMAR DRESSING INTACT. CALL LIGHT AND WATER WITHIN REACH. FALL PRECAUTIONS IN PLACE. CPOC
[2020-10-25 20:08] VITALS: BP 123/83
--- NOTE | 2020-10-26 01:36 | NUR ---
PT LYING IN BED ON RIGHT SIDE EYES CLOSED RESTING. RR EVEN AND UNLABORED. CALL LIGHT WITHIN REACH
--- NOTE | 2020-10-26 06:37 | NUR ---
PT LYING IN BED WATCHING NEWS. DENIES ANY NEEDS OR PAIN. NO DISTRESS NOTED. CALL LIGHT WITHIN REACH
[2020-10-26 07:04] LABS: BASOPHILS 0.4 % (0-2); EOSINOPHILS 2.2 % (0-7); HEMATOCRIT 38.7 % (42.0-54.0); HEMOGLOBIN 12.9 g/dL (13.5-17.5); IMMATURE GRANULOCYTES 0.5 % (0-5); LYMPHOCYTE ABS# 1.59 10x3/uL (1.32-3.57); LYMPHOCYTES 19.1 % (15-50); MCHC 33.3 g/dL (31.0-37.0); MONOCYTES 13.5 % (2-11); NEUTROPHIL ABS# 5.37 10x3/uL (1.78-5.38); NEUTROPHILS 64.3 % (40-80); PLATELET COUNT 328 10x3/uL (130-400); RDW 13.3 % (11.5-14.5); WBC 8.3 10x3/uL (4.8-10.8)
[2020-10-26 07:17] LABS: CALC OSMOLALITY 279 mosm/kg (275-300); CALCIUM 8.6 mg/dL (8.5-10.1); CARBON DIOXIDE 29.1 mmol/L (21.0-32.0); CHLORIDE - SERUM 103 mmol/L (98-107); CREATININE - SERUM 0.7 mg/dL (0.6-1.3); GLUCOSE 119 mg/dL (74-106); SODIUM 139 mmol/L (136-145); UREA NITROGEN 14 mg/dL (7-18); eGFR NON AFRICAN AMERICAN > 90 mL/min (90-120)
[2020-10-26 07:58] VITALS: BP 114/80
--- NOTE | 2020-10-26 08:00 | NUR ---
SHIFT ASSMT COMPLETED.
--- NOTE | 2020-10-26 14:49 | NUR ---
NUTRITION FOLLOW UP: COMMENTS: Patient eating well for the past 6 meals. No new complaints at this time. DIET: Regular Diet PO INTAKE: 79% avg for last 6 meals WEIGHT: 225 lbs BM: x 1 on 10/26 SIG MEDS: Colace, Milk of Mag, Dulcolax, Thiamine, MVI, MagOx, Fish Oil, Vit C SIG LABS: Glucose-119, 117, 109 RECOMMENDATIONS: Continue regular diet as tolerated Offer nutritional supplements if PO intake becomes < 50% avg for meals RD to follow up within 7 days
--- NOTE | 2020-10-26 19:35 | NUR ---
AWAKE AND ALERT. RESTING IN BED WITH RESPIRATIONS UNLABORED. DRESSING INTACT TO LOW BACK. NO DISTRESS NOTED. CALL LIGHT IN REACH.
[2020-10-26 19:51] VITALS: BP 116/71
--- NOTE | 2020-10-27 05:51 | NUR ---
QUIET HOURS. NO ACUTE CHANGES IN CONDITION THIS SHIFT. RESTING IN BED WITH NO DISTRESS NOTED.
--- NOTE | 2020-10-27 08:00 | NUR ---
SHIFT ASSMT COMPLETED.
[2020-10-27 08:27] VITALS: BP 133/74
--- NOTE | 2020-10-27 19:41 | NUR ---
AWAKE AND ALERT. RESTING IN BED WITH NO DISTRESS NOTED. DRESSING INTACT TO LOW BACK. RESPIRATIONS UNLABORED. CALL LIGHT IN REACH.
[2020-10-27 20:19] VITALS: BP 119/81
--- NOTE | 2020-10-28 04:53 | NUR ---
QUIET HOURS. NO ACUTE CHANGES IN CONDITION THIS SHIFT. RESTING IN BED WITH NO DISTRESS NOTED.
[2020-10-28 11:03] VITALS: BP 112/83
--- NOTE | 2020-10-28 13:58 | NUR ---
PATIENT DISCHARGING HOME TODAY WITH FRIEND. [facility] WILL PROVIDE THERAPY AT HOME. NO NEW DME NEEDED AT THIS TIME.DR. MANCUSO OFFICE WILL CALL PATIENT WITH AN APPOINTMENT. MATT NAVARRO APRN 11/02/20 @ 9:15, DR. JAMISON 11/16/20 @ 1:30. THEODORE SINGED, IMM SERVED AND EXPLAINED, ONE GIVEN TO PATIENT AND ONE FILED IN CHART. DISCHARGE INSTRUCTIONS FAXED TO PCP, HOME HEALTH AND WITH PATIENT. COMPARE DATA REVIEWED , PATIENT VOICED UNDERSTANDING AND CHOSE [facility].
== END 2020-10-28 14:00 | disposition home health service (06) | DRG 552 ==
LOC: D.REHAB 16:58
PROVIDERS: ADMIT Emergency Medicine; ATTEND Emergency Medicine
DX: M48.061 Spinal stenosis, lumbar region without neurogenic claudication (principal); Z47.89 Encounter for other orthopedic aftercare; M19.90 Unspecified osteoarthritis, unspecified site; I73.9 Peripheral vascular disease, unspecified; R53.1 Weakness; G62.9 Polyneuropathy, unspecified; C61 Malignant neoplasm of prostate; E78.5 Hyperlipidemia, unspecified; E03.9 Hypothyroidism, unspecified; G47.33 Obstructive sleep apnea (adult) (pediatric)